=== PATIENT | male | born 1955 | race Caucasian/White ===

== ENCOUNTER 2017-02-15 17:31 | Inpatient (IN) | payer MEDICAID ==
[~2017-02-15] VITALS: Ht 170.2 cm; Wt 62.3 kg
[~2017-02-15 17:31] MED LIST: ALBU8HFA IH; BUDE180H IH; CARV6 PO; FURO20 PO; HYDR25TA84 PO; LISI-661 PO; PRED20 PO; SIMV-260 PO; ZOLP10 PO
[2017-02-15] MEDS ORDERED: 0.9% SODIUM CHLORIDE 5 ML NEB SOLUTION NEB ONE (17:57)
[2017-02-15] MEDS ORDERED: DEXAMETHASONE SOD PHOS 4 MG/ML 5 ML VIAL IVP ONE (18:00)
[2017-02-15] MEDS ORDERED: ALBUTEROL SULFATE 5 MG/ML 20 ML NEB SOLN [BULK] NEB ONE (18:00)
[2017-02-15] MEDS ORDERED: IPRATROPIUM BROMIDE 0.5 MG/2.5 ML NEB SOLUTION NEB ONE (18:00)
[2017-02-15 18:11] LABS: BASOPHILS % (AUTO) 0.7 % (0.0-2.0); EOSINOPHILS % (AUTO) 0.3 % (1.0-6.0); LYMPHOCYTES # (AUTO) 1.2 K/uL (1.0-4.8); LYMPHOCYTES % (AUTO) 8.8 % (22.0-44.0); MEAN CORPUSCULAR HEMOGLOBIN 25.5 pg (26.0-34.0); MEAN CORPUSCULAR HGB CONC 30.3 G/dL (31.0-37.0); MEAN CORPUSCULAR VOLUME 84 fL (80-100); MONOCYTES # (AUTO) 1.2 K/uL (0.1-1.0); MONOCYTES % (AUTO) 8.9 % (2.0-9.0); NEUTROPHILS % (AUTO) 81.3 % (40.0-70.0); PLATELET COUNT (AUTO) 286 K/uL (150-450); RED BLOOD CELL COUNT(AUTO) 6.28 MIL/uL (4.50-5.90); RED CELL DISTRIBUTION WIDTH 16.2 % (11.5-14.5); WHITE BLOOD COUNT (AUTO) 13.5 K/uL (4.5-11.0)
[2017-02-15 18:17] LABS: INR 1.1 (0.9-1.1); PROTHROMBIN TIME 11.4 SEC (9.4-11.6)
[2017-02-15 18:19] LABS: ANION GAP 9 mmol/L (8-16); CALCIUM, TOTAL 8.4 mg/dL (8.8-10.5); CARBON DIOXIDE 27 mmol/L (22-29); CHLORIDE 98 mmol/L (98-107); CREATININE 1.08 mg/dL (0.60-1.30); GLOMERULAR FILTR. RATE CALC > 60 mL/min (>60); POTASSIUM 3.8 mmol/L (3.5-5.1); SODIUM SERUM 134 mmol/L (136-145); UREA NITROGEN, BLOOD 9 mg/dL (7-18)
[2017-02-15 18:23] LABS: ALANINE AMINOTRANSFERASE 53 U/L (12-78); ALBUMIN 3.5 g/dL (3.4-5.0); ASPARTATE AMINOTRANSFERASE 43 U/L (15-37); BILIRUBIN,TOTAL 0.5 mg/dL (0.1-1.0); TOTAL PROTEIN, SERUM 6.8 g/dL (6.4-8.2)
[2017-02-15] MEDS ORDERED: ONDANSETRON HCL 4 MG/2 ML VIAL IVP ONE (18:30)
[2017-02-15 18:31] LABS: B-TYPE NATRIURETIC PEPTIDE 303 pg/mL (0-100)
[2017-02-15 19:05] LABS: APPEARANCE,URINE CLEAR (CLEAR); GLUCOSE, URINE (UA) NEGATIVE (NEGATIVE); KETONES,URINE NEGATIVE (NEGATIVE); LEUKOCYTE ESTERASE ,URINE NEGATIVE (NEGATIVE); OCCULT BLOOD,URINE NEGATIVE (NEGATIVE); PH,URINE 6.5 (5.0-8.0); PROTEIN,URINE NEGATIVE (NEGATIVE)
[2017-02-15 19:07] LABS: ADD UA MICROSCOPIC NO
[2017-02-15] MEDS ORDERED: FUROSEMIDE 40 MG/4 ML VIAL IVP ONE (19:15)
[2017-02-15] MEDS ORDERED: LORazepam 2 MG/ML VIAL IVP ONE (19:30)
[2017-02-15] MEDS ORDERED: IPRATROPIUM BROMIDE 0.5 MG/2.5 ML NEB SOLUTION NEB PRN (20:00)
[2017-02-15] MEDS ORDERED: 0.9% SODIUM CHLORIDE 10 ML SYRINGE IVP PRN (20:00)
[2017-02-15] MEDS ORDERED: ACETAMINOPHEN 325 MG TABLET PO PRN (20:00)
[2017-02-15] MEDS ORDERED: ONDANSETRON HCL 4 MG/2 ML VIAL IVP PRN (20:00)
[2017-02-15] MEDS ORDERED: ALBUTEROL SULFATE 2.5 MG/0.5 ML NEB SOLUTION NEB PRN (20:00)
[2017-02-15 21:09] VITALS: BP 110/80
[2017-02-15] MEDS: ALBUTEROL SULFATE 2.5 MG/0.5 ML NEB SOLUTION NEB SCH (22:54)
[2017-02-15] MEDS: IPRATROPIUM BROMIDE 0.5 MG/2.5 ML NEB SOLUTION NEB SCH (23:36)
[2017-02-16] VITALS (8 sets, daily range): BP systolic 106–143; BP diastolic 71–97
[2017-02-16] MEDS: ALBUTEROL SULFATE 2.5 MG/0.5 ML NEB SOLUTION NEB SCH ×4 (02:45→19:41)
[2017-02-16] MEDS: IPRATROPIUM BROMIDE 0.5 MG/2.5 ML NEB SOLUTION NEB SCH ×4 (02:46→19:41)
[2017-02-16] MEDS ORDERED: ALBUTEROL SULFATE 2.5 MG/0.5 ML NEB SOLUTION NEB PRN (08:30)
[2017-02-16] MEDS ORDERED: IPRATROPIUM BROMIDE 0.5 MG/2.5 ML NEB SOLUTION NEB PRN (08:30)
[2017-02-16] MEDS ORDERED: ZOLPIDEM TARTRATE 10 MG TABLET PO PRN (08:30)
[2017-02-16] MEDS: HydrALAZINE HCL 25 MG TABLET PO SCH ×2 (09:33→21:09)
[2017-02-16] MEDS: CARVEDILOL 6.25 MG TABLET PO SCH ×2 (09:33→21:09)
[2017-02-16] MEDS: HYDROCODONE/ACETAMINOPHEN 5-325 MG TABLET PO PRN ×2 (09:34→16:23)
[2017-02-16] MEDS: LISINOPRIL 20 MG TABLET PO SCH (09:34)
[2017-02-16] MEDS: FUROSEMIDE 20 MG TABLET PO SCH (09:34)
[2017-02-16] MEDS: MethylPREDNISolone SOD SUCC 40 MG/ML VIAL IVP SCH ×3 (09:35→23:41)
[2017-02-16] MEDS ORDERED: PERMETHRIN 5% 60 GM CREAM TP ONE (13:30)
[2017-02-16] MEDS: HEPARIN SODIUM,PORCINE 5,000 UNITS/ML VIAL SQ SCH ×2 (16:21→23:41)
[2017-02-16] MEDS: SIMVASTATIN 20 MG TABLET PO SCH (21:09)
[2017-02-17] MEDS: ALBUTEROL SULFATE 2.5 MG/0.5 ML NEB SOLUTION NEB SCH ×4 (02:00→19:37)
[2017-02-17] MEDS: IPRATROPIUM BROMIDE 0.5 MG/2.5 ML NEB SOLUTION NEB SCH ×4 (02:00→19:37)
[2017-02-17 05:23] VITALS: BP 120/83
[2017-02-17 06:33] LABS: EOSINOPHILS % (AUTO) 0.1 % (1.0-6.0); HEMATOCRIT 51.4 % (41-53); HEMOGLOBIN 15.1 g/dL (13.5-17.5); LYMPHOCYTES # (AUTO) 0.4 K/uL (1.0-4.8); LYMPHOCYTES % (AUTO) 2.8 % (22.0-44.0); MEAN CORPUSCULAR HEMOGLOBIN 25.3 pg (26.0-34.0); MEAN CORPUSCULAR HGB CONC 29.4 G/dL (31.0-37.0); MEAN CORPUSCULAR VOLUME 86 fL (80-100); MONOCYTES # (AUTO) 0.2 K/uL (0.1-1.0); MONOCYTES % (AUTO) 1.6 % (2.0-9.0); NEUTROPHILS # (AUTO) 14.1 K/uL (1.8-7.7); PLATELET COUNT (AUTO) 276 K/uL (150-450); RED BLOOD CELL COUNT(AUTO) 5.97 MIL/uL (4.50-5.90); RED CELL DISTRIBUTION WIDTH 16.5 % (11.5-14.5)
[2017-02-17 06:40] LABS: NEUTROPHILS % (AUTO) 94.5 % (40.0-70.0)
[2017-02-17 07:20] VITALS: BP 138/93
[2017-02-17 07:27] LABS: ALANINE AMINOTRANSFERASE 42 U/L (12-78); ALBUMIN 3.1 g/dL (3.4-5.0); ANION GAP 9 mmol/L (8-16); ASPARTATE AMINOTRANSFERASE 26 U/L (15-37); BILIRUBIN,TOTAL 0.3 mg/dL (0.1-1.0); CALCIUM, TOTAL 8.5 mg/dL (8.8-10.5); CARBON DIOXIDE 29 mmol/L (22-29); CHLORIDE 101 mmol/L (98-107); CREATININE 0.98 mg/dL (0.60-1.30); GLOMERULAR FILTR. RATE CALC > 60 mL/min (>60); POTASSIUM 3.8 mmol/L (3.5-5.1); SODIUM SERUM 139 mmol/L (136-145); TOTAL PROTEIN, SERUM 6.1 g/dL (6.4-8.2); UREA NITROGEN, BLOOD 15 mg/dL (7-18)
[2017-02-17] MEDS: MethylPREDNISolone SOD SUCC 40 MG/ML VIAL IVP SCH ×3 (08:52→23:38)
[2017-02-17] MEDS: CARVEDILOL 6.25 MG TABLET PO SCH ×2 (08:52→20:32)
[2017-02-17] MEDS: HEPARIN SODIUM,PORCINE 5,000 UNITS/ML VIAL SQ SCH ×3 (08:52→23:38)
[2017-02-17] MEDS: LISINOPRIL 20 MG TABLET PO SCH (08:53)
[2017-02-17] MEDS: FUROSEMIDE 20 MG TABLET PO SCH (08:53)
[2017-02-17] MEDS: HydrALAZINE HCL 25 MG TABLET PO SCH ×2 (08:53→20:32)
[2017-02-17 11:42] VITALS: BP 127/89
[2017-02-17] MEDS ORDERED: MAGNESIUM SULFATE 3 GM in DEXTROSE 5%-WATER 100 ML IV ONE (13:30)
[2017-02-17] MEDS ORDERED: MAGNESIUM HYDROXIDE SUSPENSION 30 ML UDCUP PO PRN (13:30)
[2017-02-17 15:28] VITALS: BP 121/84
[2017-02-17] MEDS ORDERED: 0.9% SODIUM CHLORIDE 10 ML SYRINGE IVP PRN (19:30)
[2017-02-17 19:43] VITALS: BP 125/89
[2017-02-17] MEDS: SIMVASTATIN 20 MG TABLET PO SCH (20:32)
[2017-02-17 23:53] VITALS: BP 130/88
[2017-02-18] MEDS: ALBUTEROL SULFATE 2.5 MG/0.5 ML NEB SOLUTION NEB SCH ×4 (02:03→20:12)
[2017-02-18] MEDS: IPRATROPIUM BROMIDE 0.5 MG/2.5 ML NEB SOLUTION NEB SCH ×4 (02:03→20:12)
[2017-02-18 04:19] VITALS: BP 124/81
[2017-02-18 08:55] VITALS: BP 124/85
[2017-02-18] MEDS: MethylPREDNISolone SOD SUCC 40 MG/ML VIAL IVP SCH (09:01)
[2017-02-18] MEDS: HEPARIN SODIUM,PORCINE 5,000 UNITS/ML VIAL SQ SCH ×3 (09:01→23:33)
[2017-02-18] MEDS: CARVEDILOL 6.25 MG TABLET PO SCH ×2 (09:02→20:26)
[2017-02-18] MEDS: FUROSEMIDE 20 MG TABLET PO SCH (09:03)
[2017-02-18] MEDS: HydrALAZINE HCL 25 MG TABLET PO SCH ×2 (09:03→20:25)
[2017-02-18] MEDS: LISINOPRIL 20 MG TABLET PO SCH (12:22)
[2017-02-18 13:27] VITALS: BP 146/90
[2017-02-18 17:47] VITALS: BP 133/89
[2017-02-18] MEDS: SIMVASTATIN 20 MG TABLET PO SCH (20:25)
[2017-02-18] MEDS: PredniSONE 20 MG TABLET PO SCH (20:26)
[2017-02-18 20:45] VITALS: BP 132/89
[2017-02-19 00:31] VITALS: BP 137/91
[2017-02-19] MEDS: ALBUTEROL SULFATE 2.5 MG/0.5 ML NEB SOLUTION NEB SCH ×3 (02:00→14:12)
[2017-02-19] MEDS: IPRATROPIUM BROMIDE 0.5 MG/2.5 ML NEB SOLUTION NEB SCH ×3 (02:00→14:12)
[2017-02-19 04:57] VITALS: BP 158/97
[2017-02-19] MEDS: HYDROCODONE/ACETAMINOPHEN 5-325 MG TABLET PO PRN (07:27)
[2017-02-19] MEDS: HEPARIN SODIUM,PORCINE 5,000 UNITS/ML VIAL SQ SCH (08:49)
[2017-02-19] MEDS: FUROSEMIDE 20 MG TABLET PO SCH (08:50)
[2017-02-19] MEDS: CARVEDILOL 6.25 MG TABLET PO SCH (08:50)
[2017-02-19] MEDS: LISINOPRIL 20 MG TABLET PO SCH (08:51)
[2017-02-19] MEDS: PredniSONE 20 MG TABLET PO SCH (08:51)
[2017-02-19] MEDS: HydrALAZINE HCL 25 MG TABLET PO SCH (08:51)
[2017-02-19 14:37] VITALS: BP 147/79
== END 2017-02-19 15:06 | disposition home or self-care (01) | DRG 140 ==
LOC: EMS 17:32 → 5S 20:06
PROVIDERS: ADMIT Family Medicine; ATTEND Family Medicine
DX: J44.1 Chronic obstructive pulmonary disease with (acute) exacerbation (principal); J96.20 Acute and chronic respiratory failure, unspecified whether with hypoxia or hypercapnia; I11.0 Hypertensive heart disease with heart failure; I50.9 Heart failure, unspecified; F31.9 Bipolar disorder, unspecified; J45.909 Unspecified asthma, uncomplicated; F20.9 Schizophrenia, unspecified; F17.210 Nicotine dependence, cigarettes, uncomplicated; I25.10 Atherosclerotic heart disease of native coronary artery without angina pectoris; Z71.6 Tobacco abuse counseling; Z88.8 Allergy status to other drugs, medicaments and biological substances
CPT/HCPCS: 83735; 93005; 94640; 94644; 96374; 96375; 99285; 99406; G0480; J1100; J1644; J1940; J2060; J2405; J2920; J3475; J7060

== ENCOUNTER 2017-03-23 12:04 | Inpatient (IN) | payer MEDICAID ==
[~2017-03-23] VITALS: Ht 170.2 cm; Wt 66.4 kg
[~2017-03-23 12:04] MED LIST changes: +HYDR25 PO; -HYDR25TA84 PO
[2017-03-23] MEDS ORDERED: IPRAHFA IH (12:15)
[2017-03-23] MEDS ORDERED: ALBUTEROL SULFATE 2.5 MG/0.5 ML NEB SOLUTION NEB ONE ×2 (12:15→17:15)
[2017-03-23] MEDS ORDERED: IPRATROPIUM BROMIDE 0.5 MG/2.5 ML NEB SOLUTION NEB ONE (12:15)
[2017-03-23] MEDS ORDERED: MethylPREDNISolone SOD SUCC 125 MG/2 ML VIAL IVP ONE (13:00)
[2017-03-23 13:08] LABS: HEMATOCRIT 49.5 % (41-53); HEMOGLOBIN 15.1 g/dL (13.5-17.5); MEAN CORPUSCULAR HEMOGLOBIN 25.2 pg (26.0-34.0); MEAN CORPUSCULAR HGB CONC 30.4 G/dL (31.0-37.0); MEAN CORPUSCULAR VOLUME 83 fL (80-100); PLATELET COUNT (AUTO) 313 K/uL (150-450); RED BLOOD CELL COUNT(AUTO) 5.98 MIL/uL (4.50-5.90); RED CELL DISTRIBUTION WIDTH 19.4 % (11.5-14.5); WHITE BLOOD COUNT (AUTO) 7.7 K/uL (4.5-11.0)
[2017-03-23 13:09] LABS: ANION GAP 8 mmol/L (8-16); CALCIUM, TOTAL 9.1 mg/dL (8.8-10.5); CARBON DIOXIDE 30 mmol/L (22-29); CHLORIDE 99 mmol/L (98-107); CREATININE 1.03 mg/dL (0.60-1.30); GLOMERULAR FILTR. RATE CALC > 60 mL/min (>60); POTASSIUM 3.7 mmol/L (3.5-5.1); SODIUM SERUM 137 mmol/L (136-145); UREA NITROGEN, BLOOD 10 mg/dL (7-18)
[2017-03-23 13:15] LABS: ALANINE AMINOTRANSFERASE 39 U/L (12-78); ALBUMIN 3.4 g/dL (3.4-5.0); ASPARTATE AMINOTRANSFERASE 31 U/L (15-37); BILIRUBIN,TOTAL 0.5 mg/dL (0.1-1.0); CREATINE KINASE, TOTAL 60 U/L (39-308)
[2017-03-23 13:28] LABS: B-TYPE NATRIURETIC PEPTIDE 52 pg/mL (0-100)
[2017-03-23 13:42] LABS: BAND NEUTROPHILS % (MANUAL) 5 % (1-5); LYMPHOCYTES % (MANUAL) 23 % (22-44); TOTAL CELLS COUNTED 100
[2017-03-23] MEDS ORDERED: TraMADol HCL 50 MG TABLET PO ONE (14:00)
[2017-03-23 14:11] LABS: APPEARANCE,URINE CLEAR (CLEAR); GLUCOSE, URINE (UA) NEGATIVE (NEGATIVE); KETONES,URINE NEGATIVE (NEGATIVE); LEUKOCYTE ESTERASE ,URINE NEGATIVE (NEGATIVE); OCCULT BLOOD,URINE NEGATIVE (NEGATIVE); PH,URINE 6.5 (5.0-8.0); PROTEIN,URINE NEGATIVE (NEGATIVE)
[2017-03-23 14:12] LABS: ADD UA MICROSCOPIC NO
[2017-03-23] MEDS ORDERED: ONDANSETRON HCL 4 MG/2 ML VIAL IVP PRN (15:15)
[2017-03-23] MEDS ORDERED: ACETAMINOPHEN 325 MG TABLET PO PRN (15:15)
[2017-03-23] MEDS ORDERED: HYDROCODONE/ACETAMINOPHEN 5-325 MG TABLET PO PRN (15:15)
[2017-03-23] MEDS ORDERED: LEVOFLOXACIN 500 MG/D5% WATER 100 ML IV ONE (15:15)
[2017-03-23 18:15] VITALS: BP 125/90
[2017-03-23] MEDS ORDERED: NICO21T TD (18:18)
[2017-03-23] MEDS ORDERED: TRAM50TA4 PO (18:42)
[2017-03-23] MEDS ORDERED: ALBUTEROL SULFATE 2.5 MG/0.5 ML NEB SOLUTION NEB PRN (18:45)
[2017-03-23] MEDS ORDERED: IPRATROPIUM BROMIDE 0.5 MG/2.5 ML NEB SOLUTION NEB PRN (18:45)
[2017-03-23] MEDS ORDERED: ALBUTEROL SULFATE 2.5 MG/0.5 ML NEB SOLUTION NEB SCH (20:00)
[2017-03-23] MEDS ORDERED: IPRATROPIUM BROMIDE 0.5 MG/2.5 ML NEB SOLUTION NEB SCH (20:00)
[2017-03-23] MEDS: ALBUTEROL SULFATE 2.5 MG/0.5 ML NEB SOLUTION NEB SCH (20:39)
[2017-03-23] MEDS: IPRATROPIUM BROMIDE 0.5 MG/2.5 ML NEB SOLUTION NEB SCH (20:39)
[2017-03-23] MEDS: BENZOCAINE/MENTHOL LOZENGE [8 LOZENGES/PACKET] PO PRN (20:43)
[2017-03-23] MEDS: HydrALAZINE HCL 25 MG TABLET PO SCH (20:43)
[2017-03-23] MEDS: CARVEDILOL 6.25 MG TABLET PO SCH (20:43)
[2017-03-23] MEDS: SIMVASTATIN 20 MG TABLET PO SCH (20:43)
[2017-03-23] MEDS: TraMADol HCL 50 MG TABLET PO PRN (20:50)
[2017-03-23] MEDS: MethylPREDNISolone SOD SUCC 40 MG/ML VIAL IVP SCH (23:30)
[2017-03-23] MEDS: ZOLPIDEM TARTRATE 10 MG TABLET PO PRN (23:31)
[2017-03-23] MEDS: HEPARIN SODIUM,PORCINE 5,000 UNITS/ML VIAL SQ SCH (23:31)
[2017-03-24] VITALS (7 sets, daily range): BP systolic 142–162; BP diastolic 88–116
[2017-03-24] MEDS: ALBUTEROL SULFATE 2.5 MG/0.5 ML NEB SOLUTION NEB SCH ×4 (02:42→21:27)
[2017-03-24] MEDS: IPRATROPIUM BROMIDE 0.5 MG/2.5 ML NEB SOLUTION NEB SCH ×4 (02:42→21:27)
[2017-03-24] MEDS: HEPARIN SODIUM,PORCINE 5,000 UNITS/ML VIAL SQ SCH ×3 (08:22→23:31)
[2017-03-24] MEDS: MethylPREDNISolone SOD SUCC 40 MG/ML VIAL IVP SCH ×3 (08:22→23:32)
[2017-03-24] MEDS: HydrALAZINE HCL 25 MG TABLET PO SCH ×2 (08:23→19:52)
[2017-03-24] MEDS: FUROSEMIDE 20 MG TABLET PO SCH (08:23)
[2017-03-24] MEDS: LISINOPRIL 20 MG TABLET PO SCH (08:23)
[2017-03-24] MEDS: CARVEDILOL 6.25 MG TABLET PO SCH ×2 (08:23→20:00)
[2017-03-24] MEDS: BENZOCAINE/MENTHOL LOZENGE [8 LOZENGES/PACKET] PO PRN ×2 (08:23→19:52)
[2017-03-24] MEDS: NICOTINE 14 MG/24 HOUR PATCH TD SCH (08:24)
[2017-03-24] MEDS: TraMADol HCL 50 MG TABLET PO PRN (09:53)
[2017-03-24] MEDS: LEVOFLOXACIN 500 MG TABLET PO SCH (15:00)
[2017-03-24] MEDS: SIMVASTATIN 20 MG TABLET PO SCH (20:00)
[2017-03-24] MEDS: ZOLPIDEM TARTRATE 10 MG TABLET PO PRN (20:03)
[2017-03-25] MEDS: IPRATROPIUM BROMIDE 0.5 MG/2.5 ML NEB SOLUTION NEB SCH ×4 (02:21→19:24)
[2017-03-25] MEDS: ALBUTEROL SULFATE 2.5 MG/0.5 ML NEB SOLUTION NEB SCH ×4 (02:21→19:24)
[2017-03-25 04:33] VITALS: BP 139/101
[2017-03-25 04:51] VITALS: BP 131/97
[2017-03-25 08:00] VITALS: BP 140/96
[2017-03-25] MEDS: MethylPREDNISolone SOD SUCC 40 MG/ML VIAL IVP SCH ×3 (09:13→23:33)
[2017-03-25] MEDS: CARVEDILOL 6.25 MG TABLET PO SCH ×2 (09:15→20:08)
[2017-03-25] MEDS: FUROSEMIDE 20 MG TABLET PO SCH (09:15)
[2017-03-25] MEDS: HEPARIN SODIUM,PORCINE 5,000 UNITS/ML VIAL SQ SCH ×3 (09:15→23:33)
[2017-03-25] MEDS: LEVOFLOXACIN 500 MG TABLET PO SCH (09:15)
[2017-03-25] MEDS: HydrALAZINE HCL 25 MG TABLET PO SCH ×2 (09:16→20:08)
[2017-03-25] MEDS: NICOTINE 14 MG/24 HOUR PATCH TD SCH (09:17)
[2017-03-25 11:05] VITALS: BP 130/93
[2017-03-25] MEDS: LISINOPRIL 20 MG TABLET PO SCH (13:22)
[2017-03-25] MEDS: BENZOCAINE/MENTHOL LOZENGE [8 LOZENGES/PACKET] PO PRN (13:23)
[2017-03-25 16:35] VITALS: BP 139/98
[2017-03-25 19:42] VITALS: BP 146/102
[2017-03-25] MEDS: SIMVASTATIN 20 MG TABLET PO SCH (20:08)
[2017-03-25] MEDS: ZOLPIDEM TARTRATE 10 MG TABLET PO PRN (20:08)
[2017-03-26] VITALS (7 sets, daily range): BP systolic 109–154; BP diastolic 79–108
[2017-03-26] MEDS: IPRATROPIUM BROMIDE 0.5 MG/2.5 ML NEB SOLUTION NEB SCH ×4 (01:28→19:54)
[2017-03-26] MEDS: ALBUTEROL SULFATE 2.5 MG/0.5 ML NEB SOLUTION NEB SCH ×4 (01:28→19:54)
[2017-03-26] MEDS: MethylPREDNISolone SOD SUCC 40 MG/ML VIAL IVP SCH (09:06)
[2017-03-26] MEDS: LISINOPRIL 20 MG TABLET PO SCH (09:07)
[2017-03-26] MEDS: NICOTINE 14 MG/24 HOUR PATCH TD SCH (09:08)
[2017-03-26] MEDS: HydrALAZINE HCL 25 MG TABLET PO SCH ×2 (09:08→20:43)
[2017-03-26] MEDS: FUROSEMIDE 20 MG TABLET PO SCH (09:08)
[2017-03-26] MEDS: LEVOFLOXACIN 500 MG TABLET PO SCH (09:09)
[2017-03-26] MEDS: CARVEDILOL 6.25 MG TABLET PO SCH ×2 (09:09→20:43)
[2017-03-26] MEDS: HEPARIN SODIUM,PORCINE 5,000 UNITS/ML VIAL SQ SCH ×3 (09:10→23:17)
[2017-03-26] MEDS ORDERED: LISI-662 PO (12:05)
[2017-03-26] MEDS: PredniSONE 10 MG TABLET PO SCH (20:43)
[2017-03-26] MEDS: SIMVASTATIN 20 MG TABLET PO SCH (20:43)
[2017-03-26] MEDS: ZOLPIDEM TARTRATE 10 MG TABLET PO PRN (23:17)
[2017-03-27] MEDS ORDERED: HydrALAZINE HCL 20 MG/ML VIAL IVP PRN
[2017-03-27 00:30] VITALS: BP 130/95
[2017-03-27] MEDS: ALBUTEROL SULFATE 2.5 MG/0.5 ML NEB SOLUTION NEB SCH ×3 (01:47→14:08)
[2017-03-27] MEDS: IPRATROPIUM BROMIDE 0.5 MG/2.5 ML NEB SOLUTION NEB SCH ×3 (01:47→14:08)
[2017-03-27 04:30] VITALS: BP 108/73
[2017-03-27 06:59] VITALS: BP 129/99
[2017-03-27] MEDS: FUROSEMIDE 20 MG TABLET PO SCH (07:45)
[2017-03-27] MEDS: HEPARIN SODIUM,PORCINE 5,000 UNITS/ML VIAL SQ SCH ×2 (07:45→15:45)
[2017-03-27] MEDS: CARVEDILOL 6.25 MG TABLET PO SCH (07:45)
[2017-03-27] MEDS: NICOTINE 14 MG/24 HOUR PATCH TD SCH (07:46)
[2017-03-27] MEDS: TraMADol HCL 50 MG TABLET PO PRN (07:46)
[2017-03-27] MEDS: LEVOFLOXACIN 500 MG TABLET PO SCH (07:46)
[2017-03-27] MEDS: PredniSONE 10 MG TABLET PO SCH (07:46)
[2017-03-27] MEDS: HydrALAZINE HCL 25 MG TABLET PO SCH (07:46)
[2017-03-27 11:24] VITALS: BP 114/117
[2017-03-27] MEDS: LISINOPRIL 20 MG TABLET PO SCH (11:42)
[2017-03-27 15:28] VITALS: BP 142/97
== END 2017-03-27 17:15 | disposition home or self-care (01) | DRG 133 ==
LOC: EMS 12:06 → 5S 17:02 → EMS 17:35
PROVIDERS: ADMIT Family Medicine; ATTEND Family Medicine
DX: J96.20 Acute and chronic respiratory failure, unspecified whether with hypoxia or hypercapnia (principal); J18.9 Pneumonia, unspecified organism; I11.0 Hypertensive heart disease with heart failure; J44.0 Chronic obstructive pulmonary disease with (acute) lower respiratory infection; I50.9 Heart failure, unspecified; J02.9 Acute pharyngitis, unspecified; J44.1 Chronic obstructive pulmonary disease with (acute) exacerbation; F41.9 Anxiety disorder, unspecified; F20.9 Schizophrenia, unspecified; F31.9 Bipolar disorder, unspecified; F17.210 Nicotine dependence, cigarettes, uncomplicated; J45.909 Unspecified asthma, uncomplicated; I25.10 Atherosclerotic heart disease of native coronary artery without angina pectoris; Z79.899 Other long term (current) drug therapy; Z88.8 Allergy status to other drugs, medicaments and biological substances
CPT/HCPCS: 87081; 93005; 94640; 99285; J0360; J1644; J2920; J2930

== ENCOUNTER 2017-04-17 11:28 | Inpatient (IN) | payer MEDICAID ==
[~2017-04-17] VITALS: Ht 170.2 cm; Wt 61.4 kg
[~2017-04-17 11:28] MED LIST changes: +IPRAHFA IH; -LISI-661 PO; +LISI-662 PO; +NICO21T TD; -PRED20 PO; +TRAM50TA4 PO
[2017-04-17] MEDS ORDERED: IPRAHFA IH (11:48)
[2017-04-17] MEDS ORDERED: BUDE10.2 IH (11:48)
[2017-04-17] MEDS ORDERED: LOSA50TA37 PO (11:48)
[2017-04-17] MEDS ORDERED: ALBU8.5H IH (11:48)
[2017-04-17] MEDS ORDERED: ATOR20TA86 PO (11:48)
[2017-04-17] MEDS ORDERED: DILT240C93 PO (11:48)
[2017-04-17] MEDS ORDERED: POTA25TA7 PO (11:48)
[2017-04-17] MEDS ORDERED: ASPI81 PO (11:48)
[2017-04-17] MEDS ORDERED: OLAN5TAB2 PO (11:48)
[2017-04-17] MEDS ORDERED: KETOROLAC TROMETHAMINE 30 MG/ML VIAL IVP ONE (12:45)
[2017-04-17] MEDS ORDERED: PredniSONE 20 MG TABLET PO ONE (12:45)
[2017-04-17] MEDS ORDERED: ASPIRIN 81 MG CHEWABLE TABLET PO ONE (12:45)
[2017-04-17] MEDS ORDERED: IPRATROPIUM BROMIDE 0.5 MG/2.5 ML NEB SOLUTION NEB ONE (12:45)
[2017-04-17] MEDS ORDERED: ALBUTEROL SULFATE 5 MG/ML 20 ML NEB SOLN [BULK] NEB ONE (12:45)
[2017-04-17] MEDS ORDERED: MethylPREDNISolone SOD SUCC 125 MG/2 ML VIAL IVP ONE (12:45)
[2017-04-17] MEDS ORDERED: KETOROLAC TROMETHAMINE 60 MG/2 ML VIAL IM ONE (12:45)
[2017-04-17 13:05] LABS: BASOPHILS # (AUTO) 0.14 K/uL (0.00-0.20); BASOPHILS % (AUTO) 1.3 % (0.0-2.0); EOSINOPHILS # (AUTO) 0.23 K/uL (0.00-0.70); EOSINOPHILS % (AUTO) 2.09 % (1.0-6.0); HEMATOCRIT 44.1 % (41-53); HEMOGLOBIN 13.7 g/dL (13.5-17.5); LYMPHOCYTES # (AUTO) 1.6 K/uL (1.0-4.8); LYMPHOCYTES % (AUTO) 14.3 % (22.0-44.0); MEAN CORPUSCULAR HEMOGLOBIN 26.1 pg (26.0-34.0); MEAN CORPUSCULAR HGB CONC 30.9 G/dL (31.0-37.0); MEAN CORPUSCULAR VOLUME 84 fL (80-100); MONOCYTES # (AUTO) 1.1 K/uL (0.1-1.0); MONOCYTES % (AUTO) 9.8 % (2.0-9.0); NEUTROPHILS # (AUTO) 7.9 K/uL (1.8-7.7); NEUTROPHILS % (AUTO) 72.6 % (40.0-70.0); PLATELET COUNT (AUTO) 156 K/uL (150-450); RED BLOOD CELL COUNT(AUTO) 5.24 MIL/uL (4.50-5.90); RED CELL DISTRIBUTION WIDTH 20.9 % (11.5-14.5); WHITE BLOOD COUNT (AUTO) 10.8 K/uL (4.5-11.0)
[2017-04-17 13:06] LABS: RBC MORPHOLOGY COMMENT ABNORMAL RBC MORPH
[2017-04-17] MEDS ORDERED: 0.9% SODIUM CHLORIDE 15 ML NEB SOLUTION NEB ONE (13:06)
[2017-04-17] MEDS ORDERED: MAGNESIUM HYDROXIDE SUSPENSION 30 ML UDCUP PO PRN (13:15)
[2017-04-17] MEDS ORDERED: ACETAMINOPHEN 325 MG TABLET PO PRN (13:15)
[2017-04-17] MEDS: ASPIRIN 81 MG CHEWABLE TABLET PO SCH (13:15)
[2017-04-17 13:16] LABS: APPEARANCE,URINE CLEAR (CLEAR); GLUCOSE, URINE (UA) NEGATIVE (NEGATIVE); KETONES,URINE NEGATIVE (NEGATIVE); LEUKOCYTE ESTERASE ,URINE NEGATIVE (NEGATIVE); OCCULT BLOOD,URINE NEGATIVE (NEGATIVE); PH,URINE 5.5 (5.0-8.0); PROTEIN,URINE NEGATIVE (NEGATIVE)
[2017-04-17 13:19] LABS: ANION GAP 6 mmol/L (8-16); CALCIUM, TOTAL 8.7 mg/dL (8.8-10.5); CARBON DIOXIDE 29 mmol/L (22-29); CHLORIDE 107 mmol/L (98-107); CREATININE 1.31 mg/dL (0.60-1.30); GLOMERULAR FILTR. RATE CALC 56 mL/min (>60); SODIUM SERUM 142 mmol/L (136-145); UREA NITROGEN, BLOOD 16 mg/dL (7-18)
[2017-04-17 13:20] LABS: ADD UA MICROSCOPIC NO
[2017-04-17] MEDS: PANTOPRAZOLE SODIUM 40 MG DR TABLET PO SCH (13:22)
[2017-04-17 13:26] LABS: ALANINE AMINOTRANSFERASE 50 U/L (12-78); ALBUMIN 3.1 g/dL (3.4-5.0); ASPARTATE AMINOTRANSFERASE 25 U/L (15-37); BILIRUBIN,TOTAL 0.7 mg/dL (0.1-1.0); CREATINE KINASE, TOTAL 50 U/L (39-308); TOTAL PROTEIN, SERUM 6.3 g/dL (6.4-8.2)
[2017-04-17 13:28] LABS: B-TYPE NATRIURETIC PEPTIDE 61 pg/mL (0-100)
[2017-04-17 15:30] VITALS: BP 101/65
[2017-04-17] MEDS: HEPARIN SODIUM,PORCINE 5,000 UNITS/ML VIAL SQ SCH ×2 (16:59→23:06)
[2017-04-17] MEDS: MethylPREDNISolone SOD SUCC 125 MG/2 ML VIAL IVP SCH ×2 (17:28→23:05)
[2017-04-17 20:29] VITALS: BP 114/77
[2017-04-17] MEDS: DOCUSATE SODIUM 100 MG CAPSULE PO SCH (21:00)
[2017-04-17] MEDS: OLANZapine 5 MG TABLET PO SCH (22:22)
[2017-04-17] MEDS: TraMADol HCL 50 MG TABLET PO PRN (23:06)
[2017-04-17] MEDS: ZOLPIDEM TARTRATE 10 MG TABLET PO PRN (23:06)
[2017-04-17 23:52] VITALS: BP 111/69
[2017-04-17 23:59] VITALS: BP 107/52
[2017-04-18 04:44] VITALS: BP 135/87
[2017-04-18] MEDS: MethylPREDNISolone SOD SUCC 125 MG/2 ML VIAL IVP SCH ×3 (05:28→18:03)
[2017-04-18] MEDS: TraMADol HCL 50 MG TABLET PO PRN ×3 (05:46→22:39)
[2017-04-18 07:37] VITALS: BP 133/94
[2017-04-18] MEDS: ASPIRIN 81 MG CHEWABLE TABLET PO SCH (08:37)
[2017-04-18] MEDS: PANTOPRAZOLE SODIUM 40 MG DR TABLET PO SCH (08:37)
[2017-04-18] MEDS: DOCUSATE SODIUM 100 MG CAPSULE PO SCH ×2 (08:37→19:41)
[2017-04-18] MEDS: HEPARIN SODIUM,PORCINE 5,000 UNITS/ML VIAL SQ SCH ×2 (08:40→16:13)
[2017-04-18] MEDS: IPRATROPIUM BROMIDE 0.5 MG/2.5 ML NEB SOLUTION NEB PRN ×2 (09:24→20:50)
[2017-04-18] MEDS: ALBUTEROL SULFATE 2.5 MG/0.5 ML NEB SOLUTION NEB PRN ×2 (09:24→20:50)
[2017-04-18 11:21] VITALS: BP 145/95
[2017-04-18 15:10] VITALS: BP 137/89
[2017-04-18] MEDS: OLANZapine 5 MG TABLET PO SCH (19:41)
[2017-04-18] MEDS: OXYGEN THERAPY IH SCH (19:44)
[2017-04-18 19:56] VITALS: BP 129/91
[2017-04-18] MEDS: ZOLPIDEM TARTRATE 10 MG TABLET PO PRN (22:39)
[2017-04-18 23:31] VITALS: BP 118/84
[2017-04-19] MEDS: MethylPREDNISolone SOD SUCC 125 MG/2 ML VIAL IVP SCH ×3 (00:54→12:27)
[2017-04-19] MEDS: HEPARIN SODIUM,PORCINE 5,000 UNITS/ML VIAL SQ SCH ×3 (00:55→15:31)
[2017-04-19 04:56] VITALS: BP 139/103
[2017-04-19 07:54] VITALS: BP 147/92
[2017-04-19] MEDS: PANTOPRAZOLE SODIUM 40 MG DR TABLET PO SCH (08:14)
[2017-04-19] MEDS: TraMADol HCL 50 MG TABLET PO PRN (08:15)
[2017-04-19] MEDS: DOCUSATE SODIUM 100 MG CAPSULE PO SCH (08:15)
[2017-04-19] MEDS: ASPIRIN 81 MG CHEWABLE TABLET PO SCH (08:15)
[2017-04-19] MEDS: OXYGEN THERAPY IH SCH (08:15)
[2017-04-19 11:51] VITALS: BP 141/98
[2017-04-19] MEDS ORDERED: PRED20TA3 PO (13:47)
[2017-04-19] MEDS ORDERED: ALBU8HFA IH (13:48)
== END 2017-04-19 16:12 | disposition home or self-care (01) | DRG 140 ==
LOC: EMS 11:29 → 6N 14:36
PROVIDERS: ADMIT Internal Medicine; ATTEND Internal Medicine
DX: J44.1 Chronic obstructive pulmonary disease with (acute) exacerbation (principal); I11.0 Hypertensive heart disease with heart failure; I50.9 Heart failure, unspecified; F41.9 Anxiety disorder, unspecified; J45.909 Unspecified asthma, uncomplicated; F17.210 Nicotine dependence, cigarettes, uncomplicated; F20.9 Schizophrenia, unspecified; Z82.5 Family history of asthma and other chronic lower respiratory diseases; Z82.49 Family history of ischemic heart disease and other diseases of the circulatory system; Z88.1 Allergy status to other antibiotic agents; Z88.8 Allergy status to other drugs, medicaments and biological substances; Z91.19 Patient's noncompliance with other medical treatment and regimen; Z79.82 Long term (current) use of aspirin; Z79.899 Other long term (current) drug therapy; F31.9 Bipolar disorder, unspecified
CPT/HCPCS: 87081; 93005; 94640; 96374; 96375; 99285; J1644; J1885; J2930

== ENCOUNTER 2017-05-18 08:41 | Emergency (ER) | payer MEDICAID ==
[~2017-05-18] VITALS: Ht 180.3 cm; Wt 65.5 kg
[~2017-05-18 08:41] MED LIST changes: +ALBU8.5H IH; +ASPI81 PO; +ATOR20TA86 PO; +BUDE10.2 IH; -BUDE180H IH; -CARV6 PO; +DILT240C93 PO; -FURO20 PO; +FURO40 PO; -HYDR25 PO; -IPRAHFA IH; +KDUR10 PO; -LISI-662 PO; +LORA2TAB2 PO; +LOSA50TA37 PO; +OLAN5TAB2 PO; +PRED20TA3 PO; -SIMV-260 PO; -TRAM50TA4 PO; -ZOLP10 PO
[2017-05-18 09:44] LABS: BASOPHILS % (AUTO) 0.3 % (0.0-2.0); EOSINOPHILS % (AUTO) 0.3 % (1.0-6.0); HEMATOCRIT 42.8 % (41-53); LYMPHOCYTES # (AUTO) 2.4 K/uL (1.0-4.8); LYMPHOCYTES % (AUTO) 9.3 % (22.0-44.0); MEAN CORPUSCULAR HEMOGLOBIN 27.4 pg (26.0-34.0); MEAN CORPUSCULAR HGB CONC 32.7 G/dL (31.0-37.0); MEAN CORPUSCULAR VOLUME 84 fL (80-100); MONOCYTES # (AUTO) 1.9 K/uL (0.1-1.0); MONOCYTES % (AUTO) 7.6 % (2.0-9.0); NEUTROPHILS # (AUTO) 21.1 K/uL (1.8-7.7); NEUTROPHILS % (AUTO) 82.5 % (40.0-70.0); PLATELET COUNT (AUTO) 419 K/uL (150-450); RED CELL DISTRIBUTION WIDTH 22.4 % (11.5-14.5); WHITE BLOOD COUNT (AUTO) 25.6 K/uL (4.5-11.0)
[2017-05-18 09:53] LABS: CALCIUM, TOTAL 9.4 mg/dL (8.8-10.5); CREATININE 1.32 mg/dL (0.60-1.30); POTASSIUM 3.8 mmol/L (3.5-5.1)
[2017-05-18 09:59] LABS: ALBUMIN 3.6 g/dL (3.4-5.0); BILIRUBIN,TOTAL 0.6 mg/dL (0.1-1.0); TOTAL PROTEIN, SERUM 7.1 g/dL (6.4-8.2)
[2017-05-18 11:09] LABS: APPEARANCE,URINE CLEAR (CLEAR); GLUCOSE, URINE (UA) NEGATIVE (NEGATIVE); KETONES,URINE NEGATIVE (NEGATIVE); LEUKOCYTE ESTERASE ,URINE NEGATIVE (NEGATIVE); OCCULT BLOOD,URINE NEGATIVE (NEGATIVE); PROTEIN,URINE NEGATIVE (NEGATIVE)
[2017-05-18 11:10] LABS: ADD UA MICROSCOPIC NO
[2017-05-18] MEDS ORDERED: BUPIVACAINE HCL/PF 0.25% 10 ML VIAL INJ ONE (12:45)
[2017-05-18] MEDS ORDERED: LORazepam 2 MG/ML VIAL IM ONE (12:45)
[2017-05-18] MEDS ORDERED: HYDROCODONE/ACETAMINOPHEN 5-325 MG TABLET PO ONE (12:45)
[2017-05-18] MEDS ORDERED: MECLIZINE HCL 25 MG TABLET PO ONE (12:45)
[2017-05-18 15:15] LABS: APPEARANCE,CSF CLEAR (CLEAR); COLOR,CSF COLORLESS (COLORLESS)
[2017-05-18 15:22] LABS: GLUCOSE, CSF 60 mg/dL (50-80); TOTAL PROTEIN, CSF 67 mg/dL (15-45)
[2017-05-18 17:00] VITALS: BP 130/89
== END 2017-05-18 18:04 | disposition home or self-care (01) ==
LOC: EMS 08:43
DX: R42 Dizziness and giddiness (principal); R51 Headache; D72.829 Elevated white blood cell count, unspecified; F41.9 Anxiety disorder, unspecified; F17.210 Nicotine dependence, cigarettes, uncomplicated; J45.909 Unspecified asthma, uncomplicated; F31.9 Bipolar disorder, unspecified; I11.0 Hypertensive heart disease with heart failure; I50.9 Heart failure, unspecified; F20.9 Schizophrenia, unspecified; J44.9 Chronic obstructive pulmonary disease, unspecified; Z79.899 Other long term (current) drug therapy; Z79.82 Long term (current) use of aspirin; Z88.8 Allergy status to other drugs, medicaments and biological substances
CPT/HCPCS: 36415; 62270; 70450; 71010; 80053; 80307; 81003; 82140; 82945; 83690; 84157; 84484; 85025; 87070; 87205; 89051; 93005; 96372; 99285; 99406; G0480; J2060; J3490

== ENCOUNTER 2017-08-01 07:35 | Emergency (ER) | payer MEDICAID ==
[~2017-08-01] VITALS: Ht 170.2 cm; Wt 66.4 kg
[~2017-08-01 07:35] MED LIST changes: -ALBU8.5H IH; +AMIO200T2 PO; +APIX5TAB PO; -ASPI81 PO; -BUDE10.2 IH; +CARV3 PO; +HYDR-2924 PO; -KDUR10 PO; -LORA2TAB2 PO; +LOSA1TAB42 PO; -LOSA50TA37 PO; +NICO-650 TD; -NICO21T TD; -PRED20TA3 PO; +PRED5 PO; +ZOLP10TA7 PO
[2017-08-01] MEDS ORDERED: ACETAMINOPHEN 325 MG TABLET PO ONE (08:15)
[2017-08-01] MEDS ORDERED: ALBUTEROL SULFATE 5 MG/ML 20 ML NEB SOLN [BULK] NEB ONE (08:15)
[2017-08-01] MEDS ORDERED: IPRATROPIUM BROMIDE 0.5 MG/2.5 ML NEB SOLUTION NEB ONE (08:15)
[2017-08-01] MEDS ORDERED: MethylPREDNISolone SOD SUCC 125 MG/2 ML VIAL IVP ONE (08:15)
[2017-08-01 08:24] LABS: CALCIUM, TOTAL 8.4 mg/dL (8.8-10.5); CREATININE 1.4 mg/dL (0.60-1.30); POTASSIUM 3.3 mmol/L (3.5-5.1)
[2017-08-01 08:27] LABS: BASOPHILS # (AUTO) 0.02 K/uL (0.00-0.20); BASOPHILS % (AUTO) 0.3 % (0.0-2.0); EOSINOPHILS # (AUTO) 0.02 K/uL (0.00-0.70); EOSINOPHILS % (AUTO) 0.25 % (1.0-6.0); HEMATOCRIT 42.6 % (41-53); HEMOGLOBIN 14.4 g/dL (13.5-17.5); LYMPHOCYTES # (AUTO) 1.7 K/uL (1.0-4.8); LYMPHOCYTES % (AUTO) 18.6 % (22.0-44.0); MEAN CORPUSCULAR HEMOGLOBIN 30.2 pg (26.0-34.0); MEAN CORPUSCULAR HGB CONC 33.8 G/dL (31.0-37.0); MEAN CORPUSCULAR VOLUME 89 fL (80-100); MONOCYTES # (AUTO) 0.8 K/uL (0.1-1.0); NEUTROPHILS # (AUTO) 6.5 K/uL (1.8-7.7); PLATELET COUNT (AUTO) 179 K/uL (150-450); RED BLOOD CELL COUNT(AUTO) 4.77 MIL/uL (4.50-5.90); RED CELL DISTRIBUTION WIDTH 14.5 % (11.5-14.5)
[2017-08-01 08:30] LABS: ALBUMIN 3.4 g/dL (3.4-5.0); BILIRUBIN,TOTAL 0.6 mg/dL (0.1-1.0)
[2017-08-01] MEDS ORDERED: HydrOXYzine PAMOATE 50 MG CAPSULE PO ONE (10:30)
[2017-08-01 11:11] VITALS: BP 124/91
== END 2017-08-01 11:59 | disposition home or self-care (01) ==
LOC: EMS 07:37
DX: S40.022A Contusion of left upper arm, initial encounter (principal); J44.1 Chronic obstructive pulmonary disease with (acute) exacerbation; I11.0 Hypertensive heart disease with heart failure; I50.9 Heart failure, unspecified; F31.9 Bipolar disorder, unspecified; F20.9 Schizophrenia, unspecified; F41.9 Anxiety disorder, unspecified; F17.210 Nicotine dependence, cigarettes, uncomplicated; Z88.8 Allergy status to other drugs, medicaments and biological substances; X58.XXXA Exposure to other specified factors, initial encounter; Y93.89 Activity, other specified; Y92.89 Other specified places as the place of occurrence of the external cause; Y99.8 Other external cause status
CPT/HCPCS: 36415; 71010; 80053; 83880; 84484; 85025; 93005; 94640; 96374; 99285; 99406; J2930; J7611

== ENCOUNTER 2017-09-10 08:46 | Inpatient (IN) | payer MEDICAID ==
[~2017-09-10] VITALS: Ht 180.3 cm; Wt 70.3 kg
[2017-09-10] MEDS ORDERED: IPRATROPIUM BROMIDE 0.5 MG/2.5 ML NEB SOLUTION NEB ONE (09:00)
[2017-09-10] MEDS ORDERED: ALBUTEROL SULFATE 5 MG/ML 20 ML NEB SOLN [BULK] NEB ONE (09:00)
[2017-09-10] MEDS ORDERED: MethylPREDNISolone SOD SUCC 125 MG/2 ML VIAL IVP ONE (09:00)
[2017-09-10 09:21] LABS: BASOPHILS % (AUTO) 0.4 % (0.0-2.0); EOSINOPHILS % (AUTO) 3.4 % (1.0-6.0); HEMATOCRIT 42.1 % (41-53); HEMOGLOBIN 13.9 g/dL (13.5-17.5); LYMPHOCYTES # (AUTO) 1.7 K/uL (1.0-4.8); LYMPHOCYTES % (AUTO) 14.6 % (22.0-44.0); MEAN CORPUSCULAR HEMOGLOBIN 29.9 pg (26.0-34.0); MEAN CORPUSCULAR VOLUME 91 fL (80-100); MONOCYTES % (AUTO) 8.7 % (2.0-9.0); NEUTROPHILS # (AUTO) 8.3 K/uL (1.8-7.7); NEUTROPHILS % (AUTO) 72.9 % (40.0-70.0); PLATELET COUNT (AUTO) 376 K/uL (150-450); RED BLOOD CELL COUNT(AUTO) 4.64 MIL/uL (4.50-5.90); RED CELL DISTRIBUTION WIDTH 16.5 % (11.5-14.5); WHITE BLOOD COUNT (AUTO) 11.4 K/uL (4.5-11.0)
[2017-09-10 09:27] LABS: ANION GAP 6 mmol/L (8-16); CALCIUM, TOTAL 8.7 mg/dL (8.8-10.5); CARBON DIOXIDE 35 mmol/L (22-29); CHLORIDE 103 mmol/L (98-107); CREATININE 1.18 mg/dL (0.60-1.30); GLOMERULAR FILTR. RATE CALC > 60 mL/min (>60); POTASSIUM 3.8 mmol/L (3.5-5.1); SODIUM SERUM 144 mmol/L (136-145); UREA NITROGEN, BLOOD 11 mg/dL (7-18)
[2017-09-10 09:38] LABS: B-TYPE NATRIURETIC PEPTIDE 1600 pg/mL (0-100)
[2017-09-10 09:40] LABS: PROTHROMBIN TIME 10.9 SEC (9.4-11.6)
[2017-09-10 09:50] LABS: ALANINE AMINOTRANSFERASE 22 U/L (12-78); ALBUMIN 3.3 g/dL (3.4-5.0); ASPARTATE AMINOTRANSFERASE 28 U/L (15-37); BILIRUBIN,TOTAL 0.5 mg/dL (0.1-1.0); CREATINE KINASE MB 1.7 ng/mL (0-5); CREATINE KINASE, TOTAL 82 U/L (39-308); TOTAL PROTEIN, SERUM 7.1 g/dL (6.4-8.2)
[2017-09-10] MEDS ORDERED: KETOROLAC TROMETHAMINE 30 MG/ML VIAL IVP ONE (10:30)
[2017-09-10] MEDS ORDERED: NITROGLYCERIN 2% (1 GM=INCH) PACKET TP ONE (10:30)
[2017-09-10] MEDS ORDERED: PERMETHRIN 5% 60 GM CREAM TP ONE (10:30)
[2017-09-10] MEDS ORDERED: FUROSEMIDE 40 MG/4 ML VIAL IVP ONE (10:30)
[2017-09-10 10:36] LABS: ABG A-A DIFF O2 95.6 mmHg (10-20.0); ABG BASE EXCESS 7.1 mmol/L (-2.0-3.0); ABG HCO3 28.8 mmol/L (22.0-26.0); ABG OXYHEMOGLOBIN 89.4 % (94.0-100.0); TEMPERATURE, FAHRENHEIT, BG 98.5 FAHREN (96.0-98.6)
[2017-09-10 10:37] LABS: ABG PCO2 68 mmHg (35-45); ALLEN TEST, BLOOD GAS Positive
[2017-09-10 10:39] LABS: APPEARANCE,URINE CLEAR (CLEAR); GLUCOSE, URINE (UA) NEGATIVE (NEGATIVE); KETONES,URINE NEGATIVE (NEGATIVE); LEUKOCYTE ESTERASE ,URINE NEGATIVE (NEGATIVE); OCCULT BLOOD,URINE NEGATIVE (NEGATIVE); PH,URINE 6.5 (5.0-8.0); PROTEIN,URINE POS 1+ (NEGATIVE)
[2017-09-10 10:40] LABS: ADD UA MICROSCOPIC YES
[2017-09-10 10:43] LABS: RBC,URINE None Seen /HPF (0-2)
[2017-09-10 10:48] LABS: IPAP, BG 14 cm H2O
[2017-09-10 10:48] LABS: SQUAMOUS EPITHELIAL CELL,UR Rare /LPF (None Seen)
[2017-09-10] MEDS ORDERED: AZITHROMYCIN 500 MG/NS 250 ML IV ONE (12:45)
[2017-09-10] MEDS ORDERED: CefTRIAXone 1 GM/DEXTROSE 50 ML IV ONE (12:45)
[2017-09-10] MEDS ORDERED: 0.9% SODIUM CHLORIDE 10 ML SYRINGE IVP PRN (13:30)
[2017-09-10] MEDS ORDERED: ACETAMINOPHEN 325 MG TABLET PO PRN ×2 (13:30→15:30)
[2017-09-10 13:49] LABS: INFLUENZA TYPE B NEGATIVE FOR TYPE B (NEGATIVE)
[2017-09-10] MEDS ORDERED: IPRATROPIUM BROMIDE 0.5 MG/2.5 ML NEB SOLUTION NEB SCH (15:00)
[2017-09-10] MEDS ORDERED: ALBUTEROL SULFATE 2.5 MG/0.5 ML NEB SOLUTION NEB SCH (15:00)
[2017-09-10] MEDS ORDERED: ALBUTEROL SULFATE 2.5 MG/0.5 ML NEB SOLUTION NEB PRN (15:30)
[2017-09-10] MEDS ORDERED: BISACODYL 10 MG RECTAL RECTAL SUPPOSITORY PR PRN (15:30)
[2017-09-10] MEDS ORDERED: ONDANSETRON HCL 4 MG/2 ML VIAL IVP PRN (15:30)
[2017-09-10] MEDS ORDERED: MAGNESIUM HYDROXIDE SUSPENSION 30 ML UDCUP PO PRN (15:30)
[2017-09-10] MEDS ORDERED: IPRATROPIUM BROMIDE 0.5 MG/2.5 ML NEB SOLUTION NEB PRN (15:30)
[2017-09-10] MEDS ORDERED: MORPHINE SULFATE 2 MG/ML SYRINGE IVP PRN (15:30)
[2017-09-10 15:44] VITALS: BP 125/87
[2017-09-10] MEDS ORDERED: HEPARIN SODIUM,PORCINE 5,000 UNITS/ML VIAL SQ SCH (16:00)
[2017-09-10] MEDS: BENZONATATE 100 MG CAPSULE PO SCH ×2 (17:26→21:39)
[2017-09-10] MEDS: MethylPREDNISolone SOD SUCC 125 MG/2 ML VIAL IVP SCH (17:28)
[2017-09-10] MEDS: NICOTINE 7 MG/24 HOUR PATCH TD SCH (17:28)
[2017-09-10] MEDS: IPRATROPIUM BROMIDE 0.5 MG/2.5 ML NEB SOLUTION NEB SCH (19:57)
[2017-09-10] MEDS: ALBUTEROL SULFATE 2.5 MG/0.5 ML NEB SOLUTION NEB SCH (19:57)
[2017-09-10 20:04] VITALS: BP 127/55
[2017-09-10] MEDS: GuaiFENesin SR 600 MG ER TABLET PO SCH (21:39)
[2017-09-10] MEDS: CARVEDILOL 3.125 MG TABLET PO SCH (21:40)
[2017-09-10] MEDS: HYDROCODONE/ACETAMINOPHEN 5-325 MG TABLET PO PRN (21:41)
[2017-09-10] MEDS: DOCUSATE SODIUM 100 MG CAPSULE PO SCH (21:41)
[2017-09-10] MEDS: AMIODARONE HCL 200 MG TABLET PO SCH (21:41)
[2017-09-10] MEDS: ZOLPIDEM TARTRATE 5 MG TABLET PO PRN (21:41)
[2017-09-10] MEDS: ATORVASTATIN CALCIUM 20 MG TABLET PO SCH (21:42)
[2017-09-10] MEDS: APIXABAN 5 MG TABLET PO SCH (21:48)
[2017-09-10 23:54] VITALS: BP 118/86
[2017-09-11] VITALS (7 sets, daily range): BP systolic 102–139; BP diastolic 55–80
[2017-09-11] MEDS: MethylPREDNISolone SOD SUCC 125 MG/2 ML VIAL IVP SCH ×5 (00:39→23:44)
[2017-09-11] MEDS: ALBUTEROL SULFATE 2.5 MG/0.5 ML NEB SOLUTION NEB SCH ×4 (02:27→19:28)
[2017-09-11] MEDS: IPRATROPIUM BROMIDE 0.5 MG/2.5 ML NEB SOLUTION NEB SCH ×4 (02:27→19:28)
[2017-09-11 06:38] LABS: BASOPHILS # (AUTO) 0.02 K/uL (0.00-0.20); BASOPHILS % (AUTO) 0.2 % (0.0-2.0); EOSINOPHILS % (AUTO) 0.03 % (1.0-6.0); HEMATOCRIT 38.1 % (41-53); HEMOGLOBIN 12.3 g/dL (13.5-17.5); LYMPHOCYTES % (AUTO) 10.4 % (22.0-44.0); MEAN CORPUSCULAR HEMOGLOBIN 29.5 pg (26.0-34.0); MEAN CORPUSCULAR HGB CONC 32.2 G/dL (31.0-37.0); MEAN CORPUSCULAR VOLUME 92 fL (80-100); MONOCYTES # (AUTO) 0.1 K/uL (0.1-1.0); MONOCYTES % (AUTO) 1.5 % (2.0-9.0); NEUTROPHILS # (AUTO) 8.1 K/uL (1.8-7.7); PLATELET COUNT (AUTO) 341 K/uL (150-450); RED BLOOD CELL COUNT(AUTO) 4.16 MIL/uL (4.50-5.90); RED CELL DISTRIBUTION WIDTH 16.8 % (11.5-14.5); WHITE BLOOD COUNT (AUTO) 9.3 K/uL (4.5-11.0)
[2017-09-11 07:02] LABS: ALBUMIN 3.1 g/dL (3.4-5.0); BILIRUBIN,TOTAL 0.3 mg/dL (0.1-1.0); CALCIUM, TOTAL 8.3 mg/dL (8.8-10.5); CREATININE 1.29 mg/dL (0.60-1.30); POTASSIUM 4.7 mmol/L (3.5-5.1); TOTAL PROTEIN, SERUM 6.1 g/dL (6.4-8.2)
[2017-09-11 07:29] LABS: NEUTROPHILS % (AUTO) 87.8 % (40.0-70.0); RBC MORPHOLOGY COMMENT NORMAL RBC MORPH
[2017-09-11] MEDS ORDERED: NICOTINE 21 MG/24 HOUR PATCH TD SCH (09:00)
[2017-09-11] MEDS: NICOTINE 7 MG/24 HOUR PATCH TD SCH (09:13)
[2017-09-11] MEDS: BENZONATATE 100 MG CAPSULE PO SCH ×3 (09:14→20:14)
[2017-09-11] MEDS: GuaiFENesin SR 600 MG ER TABLET PO SCH ×2 (09:14→20:14)
[2017-09-11] MEDS: DOCUSATE SODIUM 100 MG CAPSULE PO SCH ×2 (09:14→20:14)
[2017-09-11] MEDS: PANTOPRAZOLE SODIUM 40 MG DR TABLET PO SCH (09:14)
[2017-09-11] MEDS: APIXABAN 5 MG TABLET PO SCH ×2 (09:14→20:14)
[2017-09-11] MEDS: DILTIAZEM HCL CD 240 MG ER CAPSULE PO SCH (09:15)
[2017-09-11] MEDS: FUROSEMIDE 40 MG/4 ML VIAL IVP SCH (09:17)
[2017-09-11] MEDS: CARVEDILOL 3.125 MG TABLET PO SCH ×2 (09:17→20:14)
[2017-09-11] MEDS ORDERED: SODIUM CHLORIDE 0.9% 250 ML IV ONE (10:17)
[2017-09-11] MEDS: AMIODARONE HCL 200 MG TABLET PO SCH ×2 (10:28→20:14)
[2017-09-11] MEDS: HydrALAZINE HCL 50 MG TABLET PO SCH (10:28)
[2017-09-11] MEDS: CefTRIAXone 1 GM/DEXTROSE 50 ML IV SCH (11:15)
[2017-09-11] MEDS: AZITHROMYCIN 500 MG/NS 250 ML IV SCH (12:54)
[2017-09-11] MEDS: HYDROCODONE/ACETAMINOPHEN 5-325 MG TABLET PO PRN (17:30)
[2017-09-11] MEDS: ATORVASTATIN CALCIUM 20 MG TABLET PO SCH (20:14)
[2017-09-11] MEDS: ZOLPIDEM TARTRATE 5 MG TABLET PO PRN (20:23)
[2017-09-12] MEDS: ALBUTEROL SULFATE 2.5 MG/0.5 ML NEB SOLUTION NEB SCH ×4 (02:29→19:54)
[2017-09-12] MEDS: IPRATROPIUM BROMIDE 0.5 MG/2.5 ML NEB SOLUTION NEB SCH ×4 (02:30→19:53)
[2017-09-12 04:50] VITALS: BP 102/74
[2017-09-12] MEDS: MethylPREDNISolone SOD SUCC 125 MG/2 ML VIAL IVP SCH (05:24)
[2017-09-12 07:39] VITALS: BP 104/67
[2017-09-12] MEDS: FUROSEMIDE 40 MG/4 ML VIAL IVP SCH (08:13)
[2017-09-12] MEDS: DOCUSATE SODIUM 100 MG CAPSULE PO SCH ×2 (08:16→20:14)
[2017-09-12] MEDS: HydrALAZINE HCL 50 MG TABLET PO SCH (08:16)
[2017-09-12] MEDS: GuaiFENesin SR 600 MG ER TABLET PO SCH ×2 (08:16→20:14)
[2017-09-12] MEDS: PANTOPRAZOLE SODIUM 40 MG DR TABLET PO SCH (08:16)
[2017-09-12] MEDS: BENZONATATE 100 MG CAPSULE PO SCH ×3 (08:16→20:14)
[2017-09-12] MEDS: NICOTINE 7 MG/24 HOUR PATCH TD SCH (08:17)
[2017-09-12] MEDS: APIXABAN 5 MG TABLET PO SCH ×2 (08:17→20:14)
[2017-09-12] MEDS: DILTIAZEM HCL CD 240 MG ER CAPSULE PO SCH (08:18)
[2017-09-12] MEDS: CARVEDILOL 3.125 MG TABLET PO SCH ×2 (09:00→20:14)
[2017-09-12 10:59] VITALS: BP_SYST 94; BP_SYST 98; BP_DIAS 49; BP_DIAS 54
[2017-09-12] MEDS: PredniSONE 20 MG TABLET PO SCH (12:08)
[2017-09-12] MEDS: AMIODARONE HCL 200 MG TABLET PO SCH ×2 (12:09→20:14)
[2017-09-12] MEDS: CefTRIAXone 1 GM/DEXTROSE 50 ML IV SCH (12:10)
[2017-09-12] MEDS: AZITHROMYCIN 500 MG/NS 250 ML IV SCH (13:05)
[2017-09-12 15:04] VITALS: BP 96/77
[2017-09-12 19:39] VITALS: BP 108/83
[2017-09-12] MEDS: ATORVASTATIN CALCIUM 20 MG TABLET PO SCH (20:14)
[2017-09-12] MEDS: HYDROCODONE/ACETAMINOPHEN 5-325 MG TABLET PO PRN (20:21)
[2017-09-12] MEDS: ZOLPIDEM TARTRATE 5 MG TABLET PO PRN (21:26)
[2017-09-13] VITALS (7 sets, daily range): BP systolic 98–121; BP diastolic 69–90
[2017-09-13] MEDS: IPRATROPIUM BROMIDE 0.5 MG/2.5 ML NEB SOLUTION NEB SCH ×4 (02:00→20:49)
[2017-09-13] MEDS: ALBUTEROL SULFATE 2.5 MG/0.5 ML NEB SOLUTION NEB SCH ×4 (02:00→20:49)
[2017-09-13] MEDS: AMIODARONE HCL 200 MG TABLET PO SCH ×2 (08:25→20:24)
[2017-09-13] MEDS: GuaiFENesin SR 600 MG ER TABLET PO SCH ×2 (08:25→20:24)
[2017-09-13] MEDS: PANTOPRAZOLE SODIUM 40 MG DR TABLET PO SCH (08:25)
[2017-09-13] MEDS: PredniSONE 20 MG TABLET PO SCH (08:25)
[2017-09-13] MEDS: FUROSEMIDE 40 MG/4 ML VIAL IVP SCH (08:25)
[2017-09-13] MEDS: APIXABAN 5 MG TABLET PO SCH ×2 (08:25→20:24)
[2017-09-13] MEDS: DOCUSATE SODIUM 100 MG CAPSULE PO SCH ×2 (08:25→20:23)
[2017-09-13] MEDS: NICOTINE 7 MG/24 HOUR PATCH TD SCH (08:26)
[2017-09-13] MEDS: BENZONATATE 100 MG CAPSULE PO SCH ×3 (08:26→20:24)
[2017-09-13] MEDS: DILTIAZEM HCL CD 240 MG ER CAPSULE PO SCH (09:00)
[2017-09-13] MEDS: HydrALAZINE HCL 50 MG TABLET PO SCH (09:00)
[2017-09-13] MEDS: CARVEDILOL 3.125 MG TABLET PO SCH ×2 (09:00→20:24)
[2017-09-13] MEDS: CefTRIAXone 1 GM/DEXTROSE 50 ML IV SCH (11:42)
[2017-09-13] MEDS: AZITHROMYCIN 500 MG/NS 250 ML IV SCH (12:32)
[2017-09-13] MEDS ORDERED: ALPRAZolam 0.5 MG TABLET PO PRN (13:45)
[2017-09-13] MEDS ORDERED: MethylPREDNISolone SOD SUCC 125 MG/2 ML VIAL IVP ONE (16:45)
[2017-09-13] MEDS: ATORVASTATIN CALCIUM 20 MG TABLET PO SCH (20:24)
[2017-09-13] MEDS: ZOLPIDEM TARTRATE 5 MG TABLET PO PRN (21:34)
[2017-09-13 23:07] LABS: MYCOPLASMA AB IGG 661 U/mL (0-99)
[2017-09-14] MEDS: ALBUTEROL SULFATE 2.5 MG/0.5 ML NEB SOLUTION NEB SCH ×2 (02:40→07:58)
[2017-09-14] MEDS: IPRATROPIUM BROMIDE 0.5 MG/2.5 ML NEB SOLUTION NEB SCH ×2 (02:40→07:58)
[2017-09-14 04:40] VITALS: BP 131/71
[2017-09-14 07:19] VITALS: BP 156/73
[2017-09-14] MEDS: FUROSEMIDE 40 MG/4 ML VIAL IVP SCH (08:31)
[2017-09-14] MEDS: HydrALAZINE HCL 50 MG TABLET PO SCH (08:32)
[2017-09-14] MEDS: CARVEDILOL 3.125 MG TABLET PO SCH (08:32)
[2017-09-14] MEDS: APIXABAN 5 MG TABLET PO SCH (08:33)
[2017-09-14] MEDS: AMIODARONE HCL 200 MG TABLET PO SCH (08:33)
[2017-09-14] MEDS: PredniSONE 20 MG TABLET PO SCH (08:33)
[2017-09-14] MEDS: GuaiFENesin SR 600 MG ER TABLET PO SCH (08:34)
[2017-09-14] MEDS: PANTOPRAZOLE SODIUM 40 MG DR TABLET PO SCH (08:34)
[2017-09-14] MEDS: DOCUSATE SODIUM 100 MG CAPSULE PO SCH (08:34)
[2017-09-14] MEDS: NICOTINE 7 MG/24 HOUR PATCH TD SCH (08:35)
[2017-09-14] MEDS: BENZONATATE 100 MG CAPSULE PO SCH (08:35)
[2017-09-14] MEDS: DILTIAZEM HCL CD 240 MG ER CAPSULE PO SCH (08:35)
[2017-09-14 11:22] VITALS: BP 125/88
[2017-09-14] MEDS: CefTRIAXone 1 GM/DEXTROSE 50 ML IV SCH (11:59)
[2017-09-14 12:26] LABS: ORGANISM ID Not indicated.
[2017-09-14] MEDS: AZITHROMYCIN 500 MG/NS 250 ML IV SCH (12:35)
== END 2017-09-14 13:20 | disposition home or self-care (01) | DRG 194 ==
LOC: EMS 08:52 → 5N 13:57 → 5S 09-11 20:40
PROVIDERS: ADMIT Internal Medicine; ATTEND Internal Medicine
PROC: 5A09357 Assistance with Respiratory Ventilation, Less than 24 Consecutive Hours, Continuous Positive Airway Pressure (ICD-10-PCS; principal; 2017-09-10)
DX: I11.0 Hypertensive heart disease with heart failure (principal); J96.21 Acute and chronic respiratory failure with hypoxia; J18.9 Pneumonia, unspecified organism; E44.0 Moderate protein-calorie malnutrition; Z99.81 Dependence on supplemental oxygen; J44.0 Chronic obstructive pulmonary disease with (acute) lower respiratory infection; B86 Scabies; F17.210 Nicotine dependence, cigarettes, uncomplicated; I50.33 Acute on chronic diastolic (congestive) heart failure; J44.1 Chronic obstructive pulmonary disease with (acute) exacerbation; I35.1 Nonrheumatic aortic (valve) insufficiency; E78.5 Hyperlipidemia, unspecified; Z88.8 Allergy status to other drugs, medicaments and biological substances; F20.9 Schizophrenia, unspecified; F31.9 Bipolar disorder, unspecified; I48.0 Paroxysmal atrial fibrillation; I70.0 Atherosclerosis of aorta; Z78.9 Other specified health status; F99 Mental disorder, not otherwise specified
CPT/HCPCS: 82306; 82805; 84145; 87040; 87449; 87798; 87804; 87899; 93005; 94640; 94644; 94660; 96365; 96366; 96368; 96375; 99291; J0456; J0696; J1885; J1940; J2930; J7050

== ENCOUNTER 2017-10-09 10:19 | Inpatient (IN) | payer MEDICAID ==
[~2017-10-09] VITALS: Ht 180.3 cm; Wt 67.1 kg
[~2017-10-09 10:19] MED LIST changes: -AMIO200T2 PO; -LOSA1TAB42 PO; -PRED5 PO; -ZOLP10TA7 PO
[2017-10-09] MEDS ORDERED: IPRATROPIUM BROMIDE 0.5 MG/2.5 ML NEB SOLUTION NEB ONE (10:45)
[2017-10-09] MEDS ORDERED: ALBUTEROL SULFATE 5 MG/ML 20 ML NEB SOLN [BULK] NEB ONE (10:45)
[2017-10-09] MEDS ORDERED: MethylPREDNISolone SOD SUCC 125 MG/2 ML VIAL IVP ONE (10:45)
[2017-10-09] MEDS ORDERED: 0.9% SODIUM CHLORIDE 5 ML NEB SOLUTION NEB ONE (10:51)
[2017-10-09 11:47] LABS: HEMATOCRIT 43.1 % (41-53); HEMOGLOBIN 14.1 g/dL (13.5-17.5); MEAN CORPUSCULAR HEMOGLOBIN 29.8 pg (26.0-34.0); MEAN CORPUSCULAR HGB CONC 32.7 G/dL (31.0-37.0); MEAN CORPUSCULAR VOLUME 91 fL (80-100); PLATELET COUNT (AUTO) 394 K/uL (150-450); RED BLOOD CELL COUNT(AUTO) 4.73 MIL/uL (4.50-5.90); WHITE BLOOD COUNT (AUTO) 9.8 K/uL (4.5-11.0)
[2017-10-09 11:56] LABS: ANION GAP 5 mmol/L (8-16); CALCIUM, TOTAL 8.9 mg/dL (8.8-10.5); CARBON DIOXIDE 35 mmol/L (22-29); CHLORIDE 99 mmol/L (98-107); CREATININE 1.35 mg/dL (0.60-1.30); GLOMERULAR FILTR. RATE CALC 54 mL/min (>60); POTASSIUM 3.8 mmol/L (3.5-5.1); SODIUM SERUM 139 mmol/L (136-145); UREA NITROGEN, BLOOD 21 mg/dL (7-18)
[2017-10-09 12:19] LABS: B-TYPE NATRIURETIC PEPTIDE 2060 pg/mL (0-100)
[2017-10-09 12:20] LABS: ALANINE AMINOTRANSFERASE 47 U/L (12-78); ALBUMIN 3.5 g/dL (3.4-5.0); ASPARTATE AMINOTRANSFERASE 52 U/L (15-37); BILIRUBIN,TOTAL 0.6 mg/dL (0.1-1.0); CREATINE KINASE MB 3.2 ng/mL (0-5); CREATINE KINASE, TOTAL 186 U/L (39-308); TOTAL PROTEIN, SERUM 7.2 g/dL (6.4-8.2)
[2017-10-09 12:33] LABS: BAND NEUTROPHILS % (MANUAL) 1 % (1-5); BASOPHILS % (MANUAL) 1 % (0-2); EOSINOPHILS % (MANUAL) 8 % (1-6); LYMPHOCYTES % (MANUAL) 25 % (22-44); TOTAL CELLS COUNTED 100
[2017-10-09 12:34] LABS: RBC MORPHOLOGY COMMENT ABNORMAL RBC MORPH
[2017-10-09] MEDS ORDERED: FUROSEMIDE 40 MG/4 ML VIAL IVP ONE (12:45)
[2017-10-09] MEDS ORDERED: ACETAMINOPHEN 325 MG TABLET PO PRN (13:15)
[2017-10-09] MEDS ORDERED: ONDANSETRON HCL 4 MG/2 ML VIAL IVP PRN (13:15)
[2017-10-09] MEDS: ALBUTEROL SULFATE 2.5 MG/0.5 ML NEB SOLUTION NEB SCH ×3 (15:00→20:00)
[2017-10-09] MEDS: IPRATROPIUM BROMIDE 0.5 MG/2.5 ML NEB SOLUTION NEB SCH ×3 (15:00→20:00)
[2017-10-09 16:41] LABS: ABG A-A DIFF O2 129.2 mmHg (10-20.0); ABG BASE EXCESS 9.4 mmol/L (-2.0-3.0); ABG HCO3 30.1 mmol/L (22.0-26.0); ABG OXYHEMOGLOBIN 88.8 % (94.0-100.0); ABG PCO2 76 mmHg (35-45); ABG PH 7.295 (7.35-7.450); ALLEN TEST, BLOOD GAS Positive; TEMPERATURE, FAHRENHEIT, BG 98.3 FAHREN (96.0-98.6)
[2017-10-09 17:15] VITALS: BP 117/76
[2017-10-09] MEDS ORDERED: ALBUTEROL SULFATE 2.5 MG/0.5 ML NEB SOLUTION NEB PRN (17:45)
[2017-10-09] MEDS ORDERED: IPRATROPIUM BROMIDE 0.5 MG/2.5 ML NEB SOLUTION NEB PRN (17:45)
[2017-10-09] MEDS ORDERED: BISACODYL 10 MG RECTAL RECTAL SUPPOSITORY PR PRN (19:30)
[2017-10-09] MEDS ORDERED: MAGNESIUM HYDROXIDE SUSPENSION 30 ML UDCUP PO PRN (19:30)
[2017-10-09] MEDS: ATORVASTATIN CALCIUM 20 MG TABLET PO SCH (20:19)
[2017-10-09] MEDS: ACETAMINOPHEN 325 MG TABLET PO PRN (20:19)
[2017-10-09] MEDS: ZOLPIDEM TARTRATE 5 MG TABLET PO PRN (20:19)
[2017-10-09] MEDS: CARVEDILOL 3.125 MG TABLET PO SCH (20:19)
[2017-10-09] MEDS: APIXABAN 5 MG TABLET PO SCH (20:19)
[2017-10-09 20:24] VITALS: BP 112/87
[2017-10-10 00:22] VITALS: BP 114/79
[2017-10-10] MEDS: MethylPREDNISolone SOD SUCC 125 MG/2 ML VIAL IVP SCH ×4 (00:35→23:45)
[2017-10-10 05:11] VITALS: BP 93/62
[2017-10-10 06:53] LABS: BASOPHILS % (AUTO) 0.2 % (0.0-2.0); EOSINOPHILS % (AUTO) 0 % (1.0-6.0); HEMATOCRIT 41.9 % (41-53); HEMOGLOBIN 13.5 g/dL (13.5-17.5); LYMPHOCYTES # (AUTO) 0.4 K/uL (1.0-4.8); LYMPHOCYTES % (AUTO) 5.6 % (22.0-44.0); MEAN CORPUSCULAR HEMOGLOBIN 29.7 pg (26.0-34.0); MEAN CORPUSCULAR HGB CONC 32.2 G/dL (31.0-37.0); MEAN CORPUSCULAR VOLUME 92 fL (80-100); MONOCYTES # (AUTO) 0.1 K/uL (0.1-1.0); MONOCYTES % (AUTO) 1.3 % (2.0-9.0); NEUTROPHILS # (AUTO) 7.1 K/uL (1.8-7.7); PLATELET COUNT (AUTO) 404 K/uL (150-450); RED BLOOD CELL COUNT(AUTO) 4.56 MIL/uL (4.50-5.90); WHITE BLOOD COUNT (AUTO) 7.7 K/uL (4.5-11.0)
[2017-10-10 06:57] LABS: CALCIUM, TOTAL 8.5 mg/dL (8.8-10.5); CREATININE 1.73 mg/dL (0.60-1.30)
[2017-10-10 06:58] LABS: NEUTROPHILS % (AUTO) 92.9 % (40.0-70.0)
[2017-10-10 07:25] VITALS: BP 98/62
[2017-10-10 08:25] LABS: RBC MORPHOLOGY COMMENT ABNORMAL RBC MORPH
[2017-10-10] MEDS: APIXABAN 5 MG TABLET PO SCH ×2 (09:00→20:10)
[2017-10-10] MEDS: OLANZapine 5 MG TABLET PO SCH (09:00)
[2017-10-10] MEDS: FUROSEMIDE 40 MG TABLET PO SCH (09:00)
[2017-10-10] MEDS: HydrALAZINE HCL 50 MG TABLET PO SCH (09:00)
[2017-10-10] MEDS: CARVEDILOL 3.125 MG TABLET PO SCH ×2 (09:00→20:09)
[2017-10-10] MEDS: DILTIAZEM HCL CD 240 MG ER CAPSULE PO SCH (09:00)
[2017-10-10 11:05] VITALS: BP 107/82
[2017-10-10] MEDS: ACETAMINOPHEN 325 MG TABLET PO PRN (12:17)
[2017-10-10] MEDS: IPRATROPIUM BROMIDE 0.5 MG/2.5 ML NEB SOLUTION NEB SCH ×3 (16:14→20:23)
[2017-10-10] MEDS: ALBUTEROL SULFATE 2.5 MG/0.5 ML NEB SOLUTION NEB SCH ×3 (16:14→20:23)
[2017-10-10 20:05] VITALS: BP 108/73
[2017-10-10] MEDS: ZOLPIDEM TARTRATE 5 MG TABLET PO PRN (20:10)
[2017-10-10] MEDS: ATORVASTATIN CALCIUM 20 MG TABLET PO SCH (20:10)
[2017-10-11] VITALS (7 sets, daily range): BP systolic 99–132; BP diastolic 63–94
[2017-10-11] MEDS: ALBUTEROL SULFATE 2.5 MG/0.5 ML NEB SOLUTION NEB SCH ×3 (07:47→20:03)
[2017-10-11] MEDS: IPRATROPIUM BROMIDE 0.5 MG/2.5 ML NEB SOLUTION NEB SCH ×3 (07:47→20:03)
[2017-10-11] MEDS: FUROSEMIDE 40 MG TABLET PO SCH (08:44)
[2017-10-11] MEDS: APIXABAN 5 MG TABLET PO SCH ×2 (08:44→20:41)
[2017-10-11] MEDS: OLANZapine 5 MG TABLET PO SCH (08:44)
[2017-10-11] MEDS: ACETAMINOPHEN 325 MG TABLET PO PRN (08:44)
[2017-10-11] MEDS: MethylPREDNISolone SOD SUCC 125 MG/2 ML VIAL IVP SCH ×2 (08:44→16:33)
[2017-10-11] MEDS: CARVEDILOL 3.125 MG TABLET PO SCH ×2 (09:00→20:41)
[2017-10-11] MEDS: DILTIAZEM HCL CD 240 MG ER CAPSULE PO SCH (09:00)
[2017-10-11] MEDS: HydrALAZINE HCL 50 MG TABLET PO SCH (09:00)
[2017-10-11] MEDS: ZOLPIDEM TARTRATE 5 MG TABLET PO PRN (20:41)
[2017-10-11] MEDS: CefTRIAXone 1 GM/DEXTROSE 50 ML IV SCH (20:41)
[2017-10-11] MEDS: ATORVASTATIN CALCIUM 20 MG TABLET PO SCH (20:41)
[2017-10-11] MEDS ORDERED: SODIUM CHLORIDE 0.9% 500 ML IV ONE (20:52)
[2017-10-11] MEDS: BUDESONIDE/FORMOTEROL FUMARATE 160-4.5 MCG/PUFF 6.9 GM INHALER IH SCH (21:00)
[2017-10-12] MEDS: MethylPREDNISolone SOD SUCC 40 MG/ML VIAL IVP SCH ×4 (00:15→23:35)
[2017-10-12 04:32] VITALS: BP 130/75
[2017-10-12 07:09] VITALS: BP 142/100
[2017-10-12] MEDS: ALBUTEROL SULFATE 2.5 MG/0.5 ML NEB SOLUTION NEB SCH ×3 (07:58→20:35)
[2017-10-12] MEDS: IPRATROPIUM BROMIDE 0.5 MG/2.5 ML NEB SOLUTION NEB SCH ×3 (07:58→20:35)
[2017-10-12] MEDS: HydrALAZINE HCL 50 MG TABLET PO SCH (08:55)
[2017-10-12] MEDS: APIXABAN 5 MG TABLET PO SCH ×2 (08:55→20:27)
[2017-10-12] MEDS: FUROSEMIDE 40 MG TABLET PO SCH (08:55)
[2017-10-12] MEDS: OLANZapine 5 MG TABLET PO SCH (08:55)
[2017-10-12] MEDS: DILTIAZEM HCL CD 240 MG ER CAPSULE PO SCH (08:55)
[2017-10-12] MEDS: CARVEDILOL 3.125 MG TABLET PO SCH ×2 (08:56→20:27)
[2017-10-12 11:24] VITALS: BP 124/80
[2017-10-12] MEDS: BUDESONIDE/FORMOTEROL FUMARATE 160-4.5 MCG/PUFF 6.9 GM INHALER IH SCH ×2 (13:29→20:27)
[2017-10-12 15:24] VITALS: BP 121/75
[2017-10-12] MEDS ORDERED: SODIUM CHLORIDE 0.9% 100 ML ONE (18:40)
[2017-10-12] MEDS: CefTRIAXone 1 GM/DEXTROSE 50 ML IV SCH (18:44)
[2017-10-12 19:17] VITALS: BP 120/79
[2017-10-12] MEDS: ATORVASTATIN CALCIUM 20 MG TABLET PO SCH (20:27)
[2017-10-12] MEDS: ZOLPIDEM TARTRATE 5 MG TABLET PO PRN (20:27)
[2017-10-12] MEDS: ACETAMINOPHEN 325 MG TABLET PO PRN (20:28)
[2017-10-12 23:04] VITALS: BP 125/75
[2017-10-13 04:25] VITALS: BP 116/81
[2017-10-13 07:08] VITALS: BP 145/87
[2017-10-13] MEDS: ALBUTEROL SULFATE 2.5 MG/0.5 ML NEB SOLUTION NEB SCH ×3 (08:21→20:35)
[2017-10-13] MEDS: IPRATROPIUM BROMIDE 0.5 MG/2.5 ML NEB SOLUTION NEB SCH ×3 (08:21→20:35)
[2017-10-13] MEDS: MethylPREDNISolone SOD SUCC 40 MG/ML VIAL IVP SCH ×2 (08:52→16:29)
[2017-10-13] MEDS: FUROSEMIDE 40 MG TABLET PO SCH (08:53)
[2017-10-13] MEDS: APIXABAN 5 MG TABLET PO SCH ×2 (08:53→20:01)
[2017-10-13] MEDS: CARVEDILOL 3.125 MG TABLET PO SCH ×2 (08:53→20:01)
[2017-10-13] MEDS: OLANZapine 5 MG TABLET PO SCH (08:53)
[2017-10-13] MEDS: HydrALAZINE HCL 50 MG TABLET PO SCH (08:53)
[2017-10-13] MEDS: DILTIAZEM HCL CD 240 MG ER CAPSULE PO SCH (08:53)
[2017-10-13] MEDS: BUDESONIDE/FORMOTEROL FUMARATE 160-4.5 MCG/PUFF 6.9 GM INHALER IH SCH ×2 (08:53→20:02)
[2017-10-13 11:04] VITALS: BP 130/93
[2017-10-13 15:35] VITALS: BP 146/94
[2017-10-13] MEDS: ATORVASTATIN CALCIUM 20 MG TABLET PO SCH (20:01)
[2017-10-13] MEDS: CefTRIAXone 1 GM/DEXTROSE 50 ML IV SCH (20:01)
[2017-10-13] MEDS: ZOLPIDEM TARTRATE 5 MG TABLET PO PRN (20:02)
[2017-10-13 20:26] VITALS: BP 138/96
[2017-10-13 23:05] VITALS: BP 140/85
[2017-10-14] MEDS: MethylPREDNISolone SOD SUCC 40 MG/ML VIAL IVP SCH ×2 (00:37→08:37)
[2017-10-14 04:04] VITALS: BP 139/93
[2017-10-14 07:08] VITALS: BP_SYST 148; BP_SYST 150; BP_DIAS 86; BP_DIAS 89
[2017-10-14] MEDS: APIXABAN 5 MG TABLET PO SCH ×2 (08:38→20:19)
[2017-10-14] MEDS: HydrALAZINE HCL 50 MG TABLET PO SCH (08:38)
[2017-10-14] MEDS: OLANZapine 5 MG TABLET PO SCH (08:38)
[2017-10-14] MEDS: DILTIAZEM HCL CD 240 MG ER CAPSULE PO SCH (08:38)
[2017-10-14] MEDS: PredniSONE 20 MG TABLET PO SCH (08:38)
[2017-10-14] MEDS: CARVEDILOL 3.125 MG TABLET PO SCH ×2 (08:39→20:20)
[2017-10-14] MEDS: BUDESONIDE/FORMOTEROL FUMARATE 160-4.5 MCG/PUFF 6.9 GM INHALER IH SCH ×2 (08:39→20:19)
[2017-10-14] MEDS: FUROSEMIDE 40 MG TABLET PO SCH (09:26)
[2017-10-14] MEDS: ALBUTEROL SULFATE 2.5 MG/0.5 ML NEB SOLUTION NEB SCH ×3 (09:39→19:38)
[2017-10-14] MEDS: IPRATROPIUM BROMIDE 0.5 MG/2.5 ML NEB SOLUTION NEB SCH ×3 (09:39→19:38)
[2017-10-14 11:42] VITALS: BP 136/82
[2017-10-14 15:35] VITALS: BP 133/93
[2017-10-14 19:44] VITALS: BP 133/89
[2017-10-14] MEDS: CefTRIAXone 1 GM/DEXTROSE 50 ML IV SCH (20:19)
[2017-10-14] MEDS: ATORVASTATIN CALCIUM 20 MG TABLET PO SCH (20:20)
[2017-10-14] MEDS: ZOLPIDEM TARTRATE 5 MG TABLET PO PRN (20:55)
[2017-10-14 23:49] VITALS: BP 120/75
[2017-10-15 04:33] VITALS: BP 120/69
[2017-10-15 07:32] VITALS: BP 129/70
[2017-10-15] MEDS: IPRATROPIUM BROMIDE 0.5 MG/2.5 ML NEB SOLUTION NEB SCH (07:46)
[2017-10-15] MEDS: ALBUTEROL SULFATE 2.5 MG/0.5 ML NEB SOLUTION NEB SCH (07:46)
[2017-10-15] MEDS ORDERED: OXYGEN THERAPY IH SCH (08:00)
[2017-10-15] MEDS: BUDESONIDE/FORMOTEROL FUMARATE 160-4.5 MCG/PUFF 6.9 GM INHALER IH SCH (09:23)
[2017-10-15] MEDS: APIXABAN 5 MG TABLET PO SCH (09:24)
[2017-10-15] MEDS: FUROSEMIDE 40 MG TABLET PO SCH (09:24)
[2017-10-15] MEDS: CARVEDILOL 3.125 MG TABLET PO SCH (09:24)
[2017-10-15] MEDS: OLANZapine 5 MG TABLET PO SCH (09:24)
[2017-10-15] MEDS: PredniSONE 20 MG TABLET PO SCH (09:24)
[2017-10-15] MEDS: DILTIAZEM HCL CD 240 MG ER CAPSULE PO SCH (09:24)
[2017-10-15] MEDS: HydrALAZINE HCL 50 MG TABLET PO SCH (09:24)
[2017-10-15 11:14] VITALS: BP 140/76
[2017-10-15] MEDS ORDERED: APIX5TAB PO (11:52)
[2017-10-15] MEDS ORDERED: PRED20 PO (11:53)
== END 2017-10-15 14:35 | disposition home or self-care (01) | DRG 133 ==
LOC: EMS 10:21 → 5S 15:15
PROVIDERS: ADMIT Family Medicine; ATTEND Family Medicine
DX: J96.00 Acute respiratory failure, unspecified whether with hypoxia or hypercapnia (principal); N17.9 Acute kidney failure, unspecified; I11.0 Hypertensive heart disease with heart failure; I50.9 Heart failure, unspecified; J44.1 Chronic obstructive pulmonary disease with (acute) exacerbation; Z99.81 Dependence on supplemental oxygen; I48.91 Unspecified atrial fibrillation; F20.9 Schizophrenia, unspecified; F41.9 Anxiety disorder, unspecified; F17.200 Nicotine dependence, unspecified, uncomplicated; H10.9 Unspecified conjunctivitis; F31.9 Bipolar disorder, unspecified; Z91.19 Patient's noncompliance with other medical treatment and regimen; Z88.8 Allergy status to other drugs, medicaments and biological substances; Z79.899 Other long term (current) drug therapy
CPT/HCPCS: 71250; 82805; 93005; 94640; 94644; 94660; 96374; 96375; 99285; J0696; J1940; J2920; J2930; J7040; J7050

== ENCOUNTER 2017-12-08 12:04 | Inpatient (IN) | payer MEDICAID ==
[~2017-12-08] VITALS: Ht 180.3 cm; Wt 64.9 kg
[~2017-12-08 12:04] MED LIST changes: +PRED20 PO
[2017-12-08] MEDS ORDERED: MethylPREDNISolone SOD SUCC 125 MG/2 ML VIAL IVP ONE (12:15)
[2017-12-08] MEDS ORDERED: IPRATROPIUM BROMIDE 0.5 MG/2.5 ML NEB SOLUTION NEB ONE (12:15)
[2017-12-08] MEDS ORDERED: ALBUTEROL SULFATE 5 MG/ML 20 ML NEB SOLN [BULK] NEB ONE (12:15)
[2017-12-08] MEDS ORDERED: DiphenhydrAMINE HCL 50 MG/ML VIAL IVP ONE (12:30)
[2017-12-08] MEDS ORDERED: PERMETHRIN 5% 60 GM CREAM TP ONE (12:30)
[2017-12-08 12:34] LABS: BASOPHILS % (AUTO) 1.2 % (0.0-2.0); EOSINOPHILS % (AUTO) 4.8 % (1.0-6.0); HEMOGLOBIN 15.6 g/dL (13.5-17.5); LYMPHOCYTES # (AUTO) 1.6 K/uL (1.0-4.8); LYMPHOCYTES % (AUTO) 19.1 % (22.0-44.0); MEAN CORPUSCULAR HEMOGLOBIN 28.3 pg (26.0-34.0); MEAN CORPUSCULAR HGB CONC 32.5 G/dL (31.0-37.0); MEAN CORPUSCULAR VOLUME 87 fL (80-100); MONOCYTES # (AUTO) 0.9 K/uL (0.1-1.0); MONOCYTES % (AUTO) 10.3 % (2.0-9.0); NEUTROPHILS # (AUTO) 5.3 K/uL (1.8-7.7); NEUTROPHILS % (AUTO) 64.6 % (40.0-70.0); PLATELET COUNT (AUTO) 263 K/uL (150-450); RED BLOOD CELL COUNT(AUTO) 5.51 MIL/uL (4.50-5.90); RED CELL DISTRIBUTION WIDTH 16.5 % (11.5-14.5)
[2017-12-08 12:47] LABS: ANION GAP 9 mmol/L (8-16); CALCIUM, TOTAL 9.1 mg/dL (8.8-10.5); CARBON DIOXIDE 31 mmol/L (22-29); CHLORIDE 105 mmol/L (98-107); CREATININE 0.99 mg/dL (0.60-1.30); GLOMERULAR FILTR. RATE CALC > 60 mL/min (>60); GLUCOSE,RANDOM 107 mg/dL (70-110); POTASSIUM 3.5 mmol/L (3.5-5.1); SODIUM SERUM 145 mmol/L (136-145); UREA NITROGEN, BLOOD 7 mg/dL (7-18)
[2017-12-08 12:52] LABS: ALANINE AMINOTRANSFERASE 22 U/L (12-78); ALBUMIN 3.3 g/dL (3.4-5.0); ALKALINE PHOSPHATASE 85 U/L (46-116); ASPARTATE AMINOTRANSFERASE 22 U/L (15-37); BILIRUBIN,TOTAL 0.3 mg/dL (0.1-1.0); CREATINE KINASE, TOTAL 49 U/L (39-308); TOTAL PROTEIN, SERUM 6.8 g/dL (6.4-8.2)
[2017-12-08 12:57] LABS: B-TYPE NATRIURETIC PEPTIDE 62 pg/mL (0-100)
[2017-12-08 14:16] LABS: APPEARANCE,URINE CLEAR (CLEAR); GLUCOSE, URINE (UA) NEGATIVE (NEGATIVE); KETONES,URINE NEGATIVE (NEGATIVE); LEUKOCYTE ESTERASE ,URINE NEGATIVE (NEGATIVE); NITRATE,URINE NEGATIVE (NEGATIVE); OCCULT BLOOD,URINE NEGATIVE (NEGATIVE); PROTEIN,URINE NEGATIVE (NEGATIVE)
[2017-12-08 14:17] LABS: BILIRUBIN,URINE PRELIM. POSITIVE (NEGATIVE)
[2017-12-08 14:35] LABS: INFLUENZA TYPE A NEGATIVE FOR TYPE A (NEGATIVE); INFLUENZA TYPE B NEGATIVE FOR TYPE B (NEGATIVE)
[2017-12-08] MEDS ORDERED: 0.9% SODIUM CHLORIDE 10 ML SYRINGE IVP PRN (16:00)
[2017-12-08] MEDS ORDERED: ACETAMINOPHEN 325 MG TABLET PO PRN ×2 (16:00→18:45)
[2017-12-08] MEDS ORDERED: ONDANSETRON HCL 4 MG/2 ML VIAL IVP PRN (16:00)
[2017-12-08] MEDS ORDERED: HYDROCODONE/ACETAMINOPHEN 5-325 MG TABLET PO PRN ×2 (18:45)
[2017-12-08] MEDS ORDERED: BISACODYL 10 MG RECTAL RECTAL SUPPOSITORY PR PRN (18:45)
[2017-12-08] MEDS ORDERED: ALBUTEROL SULFATE 2.5 MG/0.5 ML NEB SOLUTION NEB PRN ×2 (18:45→19:15)
[2017-12-08] MEDS ORDERED: IPRATROPIUM BROMIDE 0.5 MG/2.5 ML NEB SOLUTION NEB PRN ×2 (18:45)
[2017-12-08] MEDS ORDERED: ALBUTEROL SULFATE 2.5 MG/0.5 ML NEB SOLUTION NEB ONE (18:45)
[2017-12-08] MEDS ORDERED: ALBUTEROL SULFATE HFA 90 MCG/PUFF 8 GM INHALER IH PRN (18:45)
[2017-12-08] MEDS: *CLINICAL-LEVOFLOXACIN IVPB DOSING CLINICAL SCH (19:05)
[2017-12-08] MEDS: OLANZapine 5 MG TABLET PO SCH (19:20)
[2017-12-08] MEDS: DILTIAZEM HCL CD 240 MG ER CAPSULE PO SCH (19:21)
[2017-12-08] MEDS: FUROSEMIDE 40 MG TABLET PO SCH (19:21)
[2017-12-08] MEDS: PANTOPRAZOLE SODIUM 40 MG DR TABLET PO SCH (19:21)
[2017-12-08] MEDS: ALBUTEROL SULFATE 2.5 MG/0.5 ML NEB SOLUTION NEB SCH ×2 (19:38→23:00)
[2017-12-08] MEDS: IPRATROPIUM BROMIDE 0.5 MG/2.5 ML NEB SOLUTION NEB SCH ×2 (19:38→23:00)
[2017-12-08] MEDS: HydrALAZINE HCL 50 MG TABLET PO SCH (20:33)
[2017-12-08] MEDS: LEVOFLOXACIN 750 MG/D5% WATER 150 ML IV SCH (20:49)
[2017-12-08] MEDS: MethylPREDNISolone SOD SUCC 40 MG/ML VIAL IVP SCH (20:50)
[2017-12-08] MEDS ORDERED: CARVEDILOL 3.125 MG TABLET PO SCH (21:00)
[2017-12-08] MEDS ORDERED: APIXABAN 5 MG TABLET PO SCH (21:00)
[2017-12-08] MEDS: ATORVASTATIN CALCIUM 20 MG TABLET PO SCH (21:07)
[2017-12-08] MEDS: APIXABAN 5 MG TABLET PO SCH (21:08)
[2017-12-08] MEDS: DOCUSATE SODIUM 100 MG CAPSULE PO SCH (21:08)
[2017-12-08 23:21] VITALS: BP 147/91
[2017-12-09] MEDS: IPRATROPIUM BROMIDE 0.5 MG/2.5 ML NEB SOLUTION NEB SCH ×6 (03:41→23:00)
[2017-12-09] MEDS: ALBUTEROL SULFATE 2.5 MG/0.5 ML NEB SOLUTION NEB SCH ×6 (03:41→23:00)
[2017-12-09 04:31] VITALS: BP 117/82
[2017-12-09 07:38] VITALS: BP 109/54
[2017-12-09 08:04] LABS: ALANINE AMINOTRANSFERASE 19 U/L (12-78); ALBUMIN 3.1 g/dL (3.4-5.0); ALKALINE PHOSPHATASE 78 U/L (46-116); ANION GAP 7 mmol/L (8-16); ASPARTATE AMINOTRANSFERASE 14 U/L (15-37); BILIRUBIN,TOTAL 0.3 mg/dL (0.1-1.0); CALCIUM, TOTAL 9.1 mg/dL (8.8-10.5); CARBON DIOXIDE 31 mmol/L (22-29); CHLORIDE 105 mmol/L (98-107); CREATININE 1.01 mg/dL (0.60-1.30); GLOMERULAR FILTR. RATE CALC > 60 mL/min (>60); GLUCOSE,RANDOM 161 mg/dL (70-110); POTASSIUM 4.7 mmol/L (3.5-5.1); SODIUM SERUM 143 mmol/L (136-145); TOTAL PROTEIN, SERUM 6.6 g/dL (6.4-8.2); UREA NITROGEN, BLOOD 13 mg/dL (7-18)
[2017-12-09] MEDS: MethylPREDNISolone SOD SUCC 40 MG/ML VIAL IVP SCH ×4 (08:38→20:47)
[2017-12-09] MEDS: PANTOPRAZOLE SODIUM 40 MG DR TABLET PO SCH (08:39)
[2017-12-09] MEDS: DOCUSATE SODIUM 100 MG CAPSULE PO SCH ×2 (08:39→20:47)
[2017-12-09] MEDS: FUROSEMIDE 40 MG TABLET PO SCH (08:39)
[2017-12-09] MEDS: APIXABAN 5 MG TABLET PO SCH ×2 (08:41→20:47)
[2017-12-09] MEDS: OLANZapine 5 MG TABLET PO SCH (08:42)
[2017-12-09] MEDS: NICOTINE 14 MG/24 HOUR PATCH TD SCH (08:43)
[2017-12-09] MEDS: HydrALAZINE HCL 50 MG TABLET PO SCH (09:00)
[2017-12-09] MEDS ORDERED: SODIUM CHLORIDE 0.9% 500 ML IV ONE (10:08)
[2017-12-09] MEDS: *CLINICAL-LEVOFLOXACIN IVPB DOSING CLINICAL SCH (10:20)
[2017-12-09 11:31] VITALS: BP 128/88
[2017-12-09] MEDS: DILTIAZEM HCL CD 240 MG ER CAPSULE PO SCH (12:31)
[2017-12-09 15:32] VITALS: BP 121/86
[2017-12-09 19:23] VITALS: BP 118/57
[2017-12-09] MEDS: LEVOFLOXACIN 750 MG/D5% WATER 150 ML IV SCH (20:46)
[2017-12-09] MEDS: ATORVASTATIN CALCIUM 20 MG TABLET PO SCH (20:47)
[2017-12-09] MEDS: ZOLPIDEM TARTRATE 5 MG TABLET PO PRN (20:47)
[2017-12-09 23:59] VITALS: BP 121/63
[2017-12-10] MEDS: ALBUTEROL SULFATE 2.5 MG/0.5 ML NEB SOLUTION NEB SCH ×6 (03:00→23:00)
[2017-12-10] MEDS: IPRATROPIUM BROMIDE 0.5 MG/2.5 ML NEB SOLUTION NEB SCH ×6 (03:00→23:00)
[2017-12-10 04:39] VITALS: BP 102/62
[2017-12-10 07:42] VITALS: BP 108/71
[2017-12-10] MEDS: MethylPREDNISolone SOD SUCC 40 MG/ML VIAL IVP SCH (08:08)
[2017-12-10] MEDS: NICOTINE 14 MG/24 HOUR PATCH TD SCH (08:08)
[2017-12-10] MEDS: PANTOPRAZOLE SODIUM 40 MG DR TABLET PO SCH (08:08)
[2017-12-10] MEDS: DOCUSATE SODIUM 100 MG CAPSULE PO SCH ×2 (08:08→20:06)
[2017-12-10] MEDS: FUROSEMIDE 20 MG TABLET PO SCH (08:08)
[2017-12-10] MEDS: APIXABAN 5 MG TABLET PO SCH ×2 (08:09→20:06)
[2017-12-10] MEDS: OLANZapine 5 MG TABLET PO SCH (08:09)
[2017-12-10] MEDS: HydrALAZINE HCL 25 MG TABLET PO SCH (08:09)
[2017-12-10] MEDS: DILTIAZEM HCL CD 240 MG ER CAPSULE PO SCH (08:10)
[2017-12-10 11:43] VITALS: BP 105/73
[2017-12-10] MEDS: PredniSONE 20 MG TABLET PO SCH (12:20)
[2017-12-10 15:50] VITALS: BP 105/68
[2017-12-10] MEDS: LEVOFLOXACIN 750 MG/D5% WATER 150 ML IV SCH (20:05)
[2017-12-10] MEDS: ATORVASTATIN CALCIUM 20 MG TABLET PO SCH (20:06)
[2017-12-10] MEDS: ZOLPIDEM TARTRATE 5 MG TABLET PO PRN (20:06)
[2017-12-10 20:19] VITALS: BP 104/70
[2017-12-11] VITALS: BP 118/62
[2017-12-11] MEDS: IPRATROPIUM BROMIDE 0.5 MG/2.5 ML NEB SOLUTION NEB SCH ×2 (03:00→07:00)
[2017-12-11] MEDS: ALBUTEROL SULFATE 2.5 MG/0.5 ML NEB SOLUTION NEB SCH ×2 (03:00→07:00)
[2017-12-11 05:11] VITALS: BP 111/77
[2017-12-11 07:24] VITALS: BP 116/80
[2017-12-11] MEDS: DOCUSATE SODIUM 100 MG CAPSULE PO SCH (07:59)
[2017-12-11] MEDS: FUROSEMIDE 20 MG TABLET PO SCH (07:59)
[2017-12-11] MEDS: PredniSONE 20 MG TABLET PO SCH (07:59)
[2017-12-11] MEDS: PANTOPRAZOLE SODIUM 40 MG DR TABLET PO SCH (07:59)
[2017-12-11] MEDS: APIXABAN 5 MG TABLET PO SCH (08:00)
[2017-12-11] MEDS: OLANZapine 5 MG TABLET PO SCH (08:00)
[2017-12-11] MEDS: NICOTINE 14 MG/24 HOUR PATCH TD SCH (08:00)
[2017-12-11] MEDS: HydrALAZINE HCL 25 MG TABLET PO SCH (08:01)
[2017-12-11] MEDS: DILTIAZEM HCL CD 240 MG ER CAPSULE PO SCH (08:01)
== END 2017-12-11 13:40 | disposition home or self-care (01) | DRG 140 ==
LOC: EMS 12:06 → 6N 18:06 → 5S 21:33
PROVIDERS: ADMIT Internal Medicine; ATTEND Internal Medicine
DX: J44.0 Chronic obstructive pulmonary disease with (acute) lower respiratory infection (principal); J96.21 Acute and chronic respiratory failure with hypoxia; Z99.81 Dependence on supplemental oxygen; I50.20 Unspecified systolic (congestive) heart failure; B86 Scabies; I11.0 Hypertensive heart disease with heart failure; I48.0 Paroxysmal atrial fibrillation; F17.210 Nicotine dependence, cigarettes, uncomplicated; F20.9 Schizophrenia, unspecified; F31.9 Bipolar disorder, unspecified; J44.1 Chronic obstructive pulmonary disease with (acute) exacerbation; G47.00 Insomnia, unspecified; J45.909 Unspecified asthma, uncomplicated; F41.9 Anxiety disorder, unspecified; I25.10 Atherosclerotic heart disease of native coronary artery without angina pectoris; J20.9 Acute bronchitis, unspecified; Z87.01 Personal history of pneumonia (recurrent); Z88.8 Allergy status to other drugs, medicaments and biological substances; Z91.19 Patient's noncompliance with other medical treatment and regimen; Z79.01 Long term (current) use of anticoagulants; Z79.899 Other long term (current) drug therapy
CPT/HCPCS: 87804; 93005; 94640; 94644; 96374; 96375; 99285; J1200; J1956; J2920; J2930; J7040

== ENCOUNTER 2017-12-14 01:29 | Emergency (ER) | payer MEDICAID ==
[~2017-12-14] VITALS: Ht 170.2 cm; Wt 67.3 kg
[~2017-12-14 01:29] MED LIST changes: -CARV3 PO; -PRED20 PO
[2017-12-14] MEDS ORDERED: IPRATROPIUM BROMIDE 0.5 MG/2.5 ML NEB SOLUTION NEB ONE (02:00)
[2017-12-14] MEDS ORDERED: ALBUTEROL SULFATE 5 MG/ML 20 ML NEB SOLN [BULK] NEB ONE (02:00)
[2017-12-14] MEDS ORDERED: MethylPREDNISolone SOD SUCC 125 MG/2 ML VIAL IVP ONE (02:00)
[2017-12-14] MEDS ORDERED: ALBUTEROL SULFATE HFA 90 MCG/PUFF 8 GM INHALER IH ONE (02:00)
[2017-12-14] MEDS ORDERED: 0.9% SODIUM CHLORIDE 15 ML NEB SOLUTION NEB ONE (02:07)
[2017-12-14 02:55] LABS: BASOPHILS % (AUTO) 0.5 % (0.0-2.0); EOSINOPHILS % (AUTO) 3.7 % (1.0-6.0); HEMATOCRIT 52.2 % (41-53); HEMOGLOBIN 16.9 g/dL (13.5-17.5); LYMPHOCYTES # (AUTO) 1.6 K/uL (1.0-4.8); LYMPHOCYTES % (AUTO) 15.6 % (22.0-44.0); MEAN CORPUSCULAR HGB CONC 32.4 G/dL (31.0-37.0); MEAN CORPUSCULAR VOLUME 86 fL (80-100); MONOCYTES # (AUTO) 1.3 K/uL (0.1-1.0); MONOCYTES % (AUTO) 12.5 % (2.0-9.0); NEUTROPHILS # (AUTO) 6.9 K/uL (1.8-7.7); NEUTROPHILS % (AUTO) 67.7 % (40.0-70.0); PLATELET COUNT (AUTO) 234 K/uL (150-450); RED BLOOD CELL COUNT(AUTO) 6.04 MIL/uL (4.50-5.90); RED CELL DISTRIBUTION WIDTH 15.9 % (11.5-14.5)
[2017-12-14 03:02] LABS: ANION GAP 4 mmol/L (8-16); CALCIUM, TOTAL 8.8 mg/dL (8.8-10.5); CARBON DIOXIDE 36 mmol/L (22-29); CHLORIDE 105 mmol/L (98-107); CREATININE 0.97 mg/dL (0.60-1.30); GLOMERULAR FILTR. RATE CALC > 60 mL/min (>60); GLUCOSE,RANDOM 118 mg/dL (70-110); POTASSIUM 3.9 mmol/L (3.5-5.1); SODIUM SERUM 145 mmol/L (136-145); UREA NITROGEN, BLOOD 21 mg/dL (7-18)
[2017-12-14 03:07] LABS: ALANINE AMINOTRANSFERASE 27 U/L (12-78); ALBUMIN 3.6 g/dL (3.4-5.0); ALKALINE PHOSPHATASE 86 U/L (46-116); ASPARTATE AMINOTRANSFERASE 22 U/L (15-37); B-TYPE NATRIURETIC PEPTIDE 63 pg/mL (0-100); BILIRUBIN,TOTAL 0.3 mg/dL (0.1-1.0); TOTAL PROTEIN, SERUM 7.1 g/dL (6.4-8.2)
[2017-12-14 04:44] LABS: APPEARANCE,URINE CLEAR (CLEAR); BILIRUBIN,URINE NEGATIVE (NEGATIVE); GLUCOSE, URINE (UA) NEGATIVE (NEGATIVE); KETONES,URINE NEGATIVE (NEGATIVE); LEUKOCYTE ESTERASE ,URINE NEGATIVE (NEGATIVE); NITRATE,URINE NEGATIVE (NEGATIVE); OCCULT BLOOD,URINE NEGATIVE (NEGATIVE); PH,URINE 6.5 (5.0-8.0); PROTEIN,URINE NEGATIVE (NEGATIVE); UROBILINOGEN,URINE 0.2 mg/dL (<=1.0)
[2017-12-14 05:46] VITALS: BP 135/76
== END 2017-12-14 05:57 | disposition home or self-care (01) ==
LOC: EMS 01:31
DX: J44.1 Chronic obstructive pulmonary disease with (acute) exacerbation (principal); J45.909 Unspecified asthma, uncomplicated; I11.0 Hypertensive heart disease with heart failure; I50.9 Heart failure, unspecified; F17.210 Nicotine dependence, cigarettes, uncomplicated; Z88.8 Allergy status to other drugs, medicaments and biological substances
CPT/HCPCS: 36415; 71045; 80053; 81003; 83880; 84484; 85025; 93005; 94644; 96374; 99285; 99406; J2930; J7611; J3535

== ENCOUNTER 2019-05-18 12:10 | Inpatient (IN) | payer MEDICAID ==
[~2019-05-18] VITALS: Ht 165.1 cm; Wt 59.8 kg
[~2019-05-18 12:10] MED LIST changes: -APIX5TAB PO; -ATOR20TA86 PO; -DILT240C93 PO; -HYDR-2924 PO; -NICO-650 TD; -OLAN5TAB2 PO; +PRED10TA3 PO
[2019-05-18] MEDS ORDERED: ZOLP5 PO (13:05)
[2019-05-18] MEDS ORDERED: ASPI81 PO (13:05)
[2019-05-18] MEDS ORDERED: ALBUTEROL SULFATE 2.5 MG/0.5 ML NEB SOLUTION NEB ONE (15:00)
[2019-05-18] MEDS ORDERED: MethylPREDNISolone SOD SUCC 125 MG/2 ML VIAL IVP ONE (15:00)
[2019-05-18] MEDS ORDERED: 0.9% SODIUM CHLORIDE 5 ML NEB SOLUTION NEB ONE (15:16)
[2019-05-18 15:27] LABS: BASOPHILS % (AUTO) 0.9 % (0.0-2.0); EOSINOPHILS % (AUTO) 1.4 % (1.0-6.0); HEMATOCRIT 43.7 % (41-53); LYMPHOCYTES # (AUTO) 1.2 K/uL (1.0-4.8); LYMPHOCYTES % (AUTO) 13.7 % (22.0-44.0); MEAN CORPUSCULAR HEMOGLOBIN 28.2 pg (26.0-34.0); MEAN CORPUSCULAR VOLUME 88 fL (80-100); MONOCYTES % (AUTO) 11.5 % (2.0-9.0); NEUTROPHILS # (AUTO) 6.6 K/uL (1.8-7.7); NEUTROPHILS % (AUTO) 72.5 % (40.0-70.0); PLATELET COUNT (AUTO) 275 K/uL (150-450); RED BLOOD CELL COUNT(AUTO) 4.96 MIL/uL (4.50-5.90); RED CELL DISTRIBUTION WIDTH 15.5 % (11.5-14.5)
[2019-05-18 15:38] LABS: ANION GAP 11 mmol/L (8-16); CALCIUM, TOTAL 9.1 mg/dL (8.8-10.5); CARBON DIOXIDE 27 mmol/L (22-29); CHLORIDE 106 mmol/L (98-107); GLOMERULAR FILTR. RATE CALC > 60 mL/min (>60); GLUCOSE,RANDOM 103 mg/dL (70-110); POTASSIUM 3.3 mmol/L (3.5-5.1); SODIUM SERUM 144 mmol/L (136-145); UREA NITROGEN, BLOOD 11 mg/dL (7-18)
[2019-05-18 15:45] LABS: ALANINE AMINOTRANSFERASE 9 U/L (12-78); ALKALINE PHOSPHATASE 79 U/L (46-116); ASPARTATE AMINOTRANSFERASE 12 U/L (15-37); BILIRUBIN,TOTAL 0.3 mg/dL (0.1-1.0); CREATINE KINASE, TOTAL ONLY 48 U/L (39-308)
[2019-05-18] MEDS ORDERED: ACETAMINOPHEN 500 MG TABLET PO ONE (16:00)
[2019-05-18 16:25] LABS: B-TYPE NATRIURETIC PEPTIDE 488 pg/mL (0-100)
[2019-05-18] MEDS ORDERED: ACETAMINOPHEN 325 MG TABLET PO PRN (21:00)
[2019-05-18] MEDS ORDERED: POTASSIUM CHLORIDE 20 MEQ ER TABLET PO PRN (21:00)
[2019-05-18] MEDS ORDERED: ALBUTEROL SULFATE 2.5 MG/0.5 ML NEB SOLUTION NEB PRN (21:00)
[2019-05-18] MEDS ORDERED: MAGNESIUM HYDROXIDE SUSPENSION 30 ML UDCUP PO PRN (21:00)
[2019-05-18] MEDS ORDERED: ONDANSETRON HCL 4 MG/2 ML VIAL IVP PRN (21:00)
[2019-05-18] MEDS ORDERED: 0.9% SODIUM CHLORIDE 10 ML SYRINGE IVP PRN (21:00)
[2019-05-18] MEDS ORDERED: POTASSIUM CHL 10 MEQ/WATER 50 ML IV PRN (21:00)
[2019-05-18] MEDS ORDERED: OxyCODONE HCL/ACETAMINOPHEN 5-325 MG TABLET PO PRN (21:00)
[2019-05-18 21:15] VITALS: BP 110/68
[2019-05-18] MEDS: DOCUSATE SODIUM 100 MG CAPSULE PO SCH (21:57)
[2019-05-18] MEDS: FUROSEMIDE 40 MG/4 ML VIAL IVP SCH (21:58)
[2019-05-18] MEDS: ASPIRIN 81 MG CHEWABLE TABLET PO SCH (21:58)
[2019-05-18] MEDS: ZOLPIDEM TARTRATE 10 MG TABLET PO PRN (23:51)
[2019-05-18] MEDS: MethylPREDNISolone SOD SUCC 125 MG/2 ML VIAL IVP SCH (23:51)
[2019-05-19] VITALS (7 sets, daily range): BP systolic 101–122; BP diastolic 55–93
[2019-05-19] MEDS: IPRATROPIUM BROMIDE 0.5 MG/2.5 ML NEB SOLUTION NEB SCH ×4 (02:25→20:00)
[2019-05-19] MEDS: ALBUTEROL SULFATE 2.5 MG/0.5 ML NEB SOLUTION NEB SCH ×4 (02:26→20:00)
[2019-05-19 05:53] LABS: BASOPHILS % (AUTO) 0.2 % (0.0-2.0); EOSINOPHILS % (AUTO) 0 % (1.0-6.0); HEMATOCRIT 48.3 % (41-53); HEMOGLOBIN 15.3 g/dL (13.5-17.5); LYMPHOCYTES # (AUTO) 0.4 K/uL (1.0-4.8); LYMPHOCYTES % (AUTO) 8.8 % (22.0-44.0); MEAN CORPUSCULAR HGB CONC 31.6 G/dL (31.0-37.0); MEAN CORPUSCULAR VOLUME 89 fL (80-100); MONOCYTES # (AUTO) 0.1 K/uL (0.1-1.0); MONOCYTES % (AUTO) 1.3 % (2.0-9.0); NEUTROPHILS # (AUTO) 3.8 K/uL (1.8-7.7); PLATELET COUNT (AUTO) 281 K/uL (150-450); RED BLOOD CELL COUNT(AUTO) 5.45 MIL/uL (4.50-5.90); RED CELL DISTRIBUTION WIDTH 15.4 % (11.5-14.5)
[2019-05-19 06:29] LABS: ANION GAP 12 mmol/L (8-16); CALCIUM, TOTAL 9.7 mg/dL (8.8-10.5); CARBON DIOXIDE 26 mmol/L (22-29); CHLORIDE 104 mmol/L (98-107); CREATININE 1.15 mg/dL (0.60-1.30); GLOMERULAR FILTR. RATE CALC > 60 mL/min (>60); GLUCOSE,RANDOM 171 mg/dL (70-110); POTASSIUM 4.7 mmol/L (3.5-5.1); SODIUM SERUM 142 mmol/L (136-145); UREA NITROGEN, BLOOD 20 mg/dL (7-18)
[2019-05-19 07:05] LABS: NEUTROPHILS % (AUTO) 89.7 % (40.0-70.0)
[2019-05-19] MEDS: MethylPREDNISolone SOD SUCC 125 MG/2 ML VIAL IVP SCH ×3 (09:01→23:13)
[2019-05-19] MEDS: FUROSEMIDE 40 MG/4 ML VIAL IVP SCH (09:01)
[2019-05-19] MEDS: ASPIRIN 81 MG CHEWABLE TABLET PO SCH (09:01)
[2019-05-19] MEDS: DOCUSATE SODIUM 100 MG CAPSULE PO SCH ×2 (09:01→20:11)
[2019-05-19 12:35] LABS: ABG METHEMOGLOBIN 0.3 % (0.0-1.5); SOURCE, BLOOD GAS ARTERIAL
[2019-05-19 13:05] LABS: ABG A-A DIFF O2 27.9 mmHg (10-20.0); ABG BASE EXCESS 1.4 mmol/L (-2.0-3.0); ABG CARBOXYHEMOGLOBIN 1.4 % (0.0-1.5); ABG HCO3 25.2 mmol/L (22.0-26.0); ABG OXYGEN CONTENT 19.5 mL/dL (15.0-23.0); ABG OXYGEN SATURATION 93.1 % (95.0-98.0); ABG OXYHEMOGLOBIN 91.5 % (94.0-100.0); ABG PCO2 45 mmHg (35-45); ABG PH 7.389 (7.35-7.450); ABG TOTAL HEMOGLOBIN 15.2 G/dL (12.0-18.0); PO2, ARTERIAL BG 68.4 mmHg (79.0-87.0); TEMPERATURE, FAHRENHEIT, BG 98.6 FAHREN (96.0-98.6)
[2019-05-19 13:06] LABS: SITE, BLOOD GAS RT RADIAL
[2019-05-19] MEDS: ZOLPIDEM TARTRATE 10 MG TABLET PO PRN (23:13)
[2019-05-20] MEDS: ALBUTEROL SULFATE 2.5 MG/0.5 ML NEB SOLUTION NEB SCH ×4 (02:00→19:56)
[2019-05-20] MEDS: IPRATROPIUM BROMIDE 0.5 MG/2.5 ML NEB SOLUTION NEB SCH ×4 (02:00→19:56)
[2019-05-20 04:34] VITALS: BP 97/59
[2019-05-20 08:22] VITALS: BP 104/71
[2019-05-20] MEDS: ASPIRIN 81 MG CHEWABLE TABLET PO SCH (08:30)
[2019-05-20] MEDS: DOCUSATE SODIUM 100 MG CAPSULE PO SCH ×2 (08:30→21:00)
[2019-05-20] MEDS: MethylPREDNISolone SOD SUCC 125 MG/2 ML VIAL IVP SCH ×3 (08:30→23:54)
[2019-05-20] MEDS: FUROSEMIDE 40 MG/4 ML VIAL IVP SCH (08:30)
[2019-05-20] MEDS: OxyCODONE HCL/ACETAMINOPHEN 5-325 MG TABLET PO PRN (14:27)
[2019-05-20 15:42] VITALS: BP 113/68
[2019-05-20 19:36] VITALS: BP 110/78
[2019-05-20] MEDS: BUDESONIDE 0.5 MG/2 ML NEB SOLUTION NEB SCH (19:55)
[2019-05-20 23:18] VITALS: BP 100/70
[2019-05-20] MEDS: ZOLPIDEM TARTRATE 10 MG TABLET PO PRN (23:53)
[2019-05-21] MEDS: IPRATROPIUM BROMIDE 0.5 MG/2.5 ML NEB SOLUTION NEB SCH ×4 (02:00→19:47)
[2019-05-21] MEDS: ALBUTEROL SULFATE 2.5 MG/0.5 ML NEB SOLUTION NEB SCH ×4 (02:00→19:47)
[2019-05-21 04:36] VITALS: BP 108/78
[2019-05-21 07:27] VITALS: BP 118/82
[2019-05-21] MEDS: MethylPREDNISolone SOD SUCC 125 MG/2 ML VIAL IVP SCH ×3 (08:42→23:20)
[2019-05-21] MEDS: FUROSEMIDE 40 MG/4 ML VIAL IVP SCH (08:42)
[2019-05-21] MEDS: DOCUSATE SODIUM 100 MG CAPSULE PO SCH ×2 (08:42→20:12)
[2019-05-21] MEDS: ASPIRIN 81 MG CHEWABLE TABLET PO SCH (08:42)
[2019-05-21] MEDS: BUDESONIDE 0.5 MG/2 ML NEB SOLUTION NEB SCH ×2 (09:00→19:47)
[2019-05-21] MEDS ORDERED: GuaiFENesin/D-METHORPHAN [SUGAR-FREE] 200-20MG/10 ML SYRUP UDCUP PO PRN (10:30)
[2019-05-21] MEDS ORDERED: BENZONATATE 100 MG CAPSULE PO PRN (10:30)
[2019-05-21 11:05] VITALS: BP 111/69
[2019-05-21 16:33] VITALS: BP 114/74
[2019-05-21 19:27] VITALS: BP 108/74
[2019-05-21] MEDS: ZOLPIDEM TARTRATE 10 MG TABLET PO PRN (20:12)
[2019-05-21] MEDS: OxyCODONE HCL/ACETAMINOPHEN 5-325 MG TABLET PO PRN (22:29)
[2019-05-21 23:27] VITALS: BP 114/84
[2019-05-22] MEDS: IPRATROPIUM BROMIDE 0.5 MG/2.5 ML NEB SOLUTION NEB SCH ×4 (02:00→19:53)
[2019-05-22] MEDS: ALBUTEROL SULFATE 2.5 MG/0.5 ML NEB SOLUTION NEB SCH ×4 (02:00→19:53)
[2019-05-22 04:45] VITALS: BP 112/79
[2019-05-22 08:34] VITALS: BP 121/78
[2019-05-22] MEDS: DOCUSATE SODIUM 100 MG CAPSULE PO SCH ×2 (08:53→20:30)
[2019-05-22] MEDS: MethylPREDNISolone SOD SUCC 125 MG/2 ML VIAL IVP SCH (08:53)
[2019-05-22] MEDS: FUROSEMIDE 40 MG/4 ML VIAL IVP SCH (08:53)
[2019-05-22] MEDS: ASPIRIN 81 MG CHEWABLE TABLET PO SCH (08:53)
[2019-05-22] MEDS: BUDESONIDE 0.5 MG/2 ML NEB SOLUTION NEB SCH ×2 (08:58→19:53)
[2019-05-22 11:26] VITALS: BP 96/50
[2019-05-22] MEDS: MethylPREDNISolone SOD SUCC 40 MG/ML VIAL IVP SCH ×2 (15:36→23:59)
[2019-05-22 15:43] VITALS: BP 108/76
[2019-05-22 19:36] VITALS: BP 105/70
[2019-05-22] MEDS: ZOLPIDEM TARTRATE 10 MG TABLET PO PRN (20:34)
[2019-05-23 00:13] VITALS: BP 117/76
[2019-05-23] MEDS: IPRATROPIUM BROMIDE 0.5 MG/2.5 ML NEB SOLUTION NEB SCH ×2 (02:00→08:00)
[2019-05-23] MEDS: ALBUTEROL SULFATE 2.5 MG/0.5 ML NEB SOLUTION NEB SCH ×2 (02:00→08:00)
[2019-05-23 04:18] VITALS: BP 105/67
[2019-05-23 07:39] VITALS: BP 119/75
[2019-05-23] MEDS: MethylPREDNISolone SOD SUCC 40 MG/ML VIAL IVP SCH (08:57)
[2019-05-23] MEDS: FUROSEMIDE 40 MG/4 ML VIAL IVP SCH (08:57)
[2019-05-23] MEDS: ASPIRIN 81 MG CHEWABLE TABLET PO SCH (08:57)
[2019-05-23] MEDS: DOCUSATE SODIUM 100 MG CAPSULE PO SCH (09:00)
[2019-05-23] MEDS: BUDESONIDE 0.5 MG/2 ML NEB SOLUTION NEB SCH (09:00)
[2019-05-23] MEDS ORDERED: ALBU8HFA IH (09:45)
[2019-05-23] MEDS ORDERED: IPRAHFA IH (09:46)
[2019-05-23] MEDS ORDERED: PRED20 PO (09:47)
[2019-05-23 11:05] VITALS: BP 117/79
== END 2019-05-23 13:45 | disposition home or self-care (01) | DRG 194 ==
LOC: EMS 12:11 → 5N 18:51 → 5S 05-22 15:40
PROVIDERS: ADMIT Internal Medicine; ATTEND Internal Medicine
DX: I11.0 Hypertensive heart disease with heart failure (principal); J96.20 Acute and chronic respiratory failure, unspecified whether with hypoxia or hypercapnia; E43 Unspecified severe protein-calorie malnutrition; I50.23 Acute on chronic systolic (congestive) heart failure; Z99.81 Dependence on supplemental oxygen; E87.6 Hypokalemia; F20.9 Schizophrenia, unspecified; B19.20 Unspecified viral hepatitis C without hepatic coma; I35.1 Nonrheumatic aortic (valve) insufficiency; E78.5 Hyperlipidemia, unspecified; F17.200 Nicotine dependence, unspecified, uncomplicated; F31.9 Bipolar disorder, unspecified; Z91.19 Patient's noncompliance with other medical treatment and regimen; Z68.21 Body mass index [BMI] 21.0-21.9, adult; J44.1 Chronic obstructive pulmonary disease with (acute) exacerbation
CPT/HCPCS: 36600; 82805; 84132; 93005; 93306; 94640; 99406; G0378; J1940; J2920; J2930